=== PATIENT | male | born 1955 | race African-American/Black ===

== ENCOUNTER 2016-05-31 17:10 | Emergency (ER) | payer OTHER ==
[~2016-05-31] VITALS: Ht 175.3 cm; Wt 90.3 kg
[~2016-05-31 17:10] MED LIST: ADVAIR 250/501 DISK IH; AMLODIPINE BESYL5 MG PO; ANTIBIOTIC; ASPIRIN325 MG PO; ATORVASTATIN CA40 MG PO; CIPROFLOXACIN500 M1 PO; HYDROCHLOROTH12.5 M3 PO; LASIX20 MG PO; MELOXICAM7.5 MG PO; METOPROLOL TART25 MG PO; METRONIDAZOLE500 MG PO; MOBIC7.5 MG PO; NICOTINE PATCH1 EAC2 TD; PAIN MEDICINE; PANTOPRAZOLE SO40 MG PO; PERCOCET 5/31 TABLET PO; PRAVACHOL40 MG PO; PREDNISONE20 MG PO; ULTRAM50 MG PO; VENTOLIN HFA18 GM IH; XARELTO20 MG PO; ZITHROMAX Z-PA250 MG PO
[2016-05-31 21:00] LABS: MCH 29.3 PG (29.0-34.0); MCHC 33.8 G/DL (30.0-36.0); MCV 86.9 FL (86-99); MEAN PLAT.VOLUME 10.6 uM^3 (9.0-12.4); PLATELET COUNT 267 K/uL (156-360); RED BLOOD COUNT 5.18 M/uL (4.00-5.50); WHITE BLOOD COUNT 12.9 K/uL (4.1-10.2)
[2016-05-31 21:07] LABS: CHLORIDE 105 mEq/L (99-109); POTASSIUM 4.3 mEq/L (3.7-5.4); SODIUM 135 mEq/L (136-147)
[2016-05-31 21:09] LABS: GLUCOSE 94 mg/dL (70-99)
[2016-05-31 21:10] LABS: ANION GAP 11 MEQ/L (2-14)
[2016-05-31 21:13] LABS: GFR ESTIMATE (CALCULATED) > 59 mL/min/
[2016-05-31 21:14] LABS: UREA NITROGEN (BUN) 12 mg/dL (9-23)
[2016-05-31] MEDS ORDERED: PERCOCET 5/31 TABLET PO (21:46)
[2016-05-31 22:11] VITALS: BP 175/85
== END 2016-05-31 22:13 | disposition home or self-care (01) ==
LOC: EME 17:10
PROVIDERS: Physician Assistant
DX: S80.02XA Contusion of left knee, initial encounter (principal); W01.0XXA Fall on same level from slipping, tripping and stumbling without subsequent striking against object, initial encounter; Y92.410 Unspecified street and highway as the place of occurrence of the external cause; F17.200 Nicotine dependence, unspecified, uncomplicated
CPT/HCPCS: 73564; 80048; 85027; 99281; 99284

== ENCOUNTER 2016-06-02 10:11 | Inpatient (IN) | payer OTHER ==
[~2016-06-02] VITALS: Ht 175.3 cm; Wt 87.5 kg
[2016-06-02 12:24] LABS: HEMATOCRIT 45.5 % (38.0-50.0); MCH 28.9 PG (29.0-34.0); MCHC 32.7 G/DL (30.0-36.0); MCV 88.2 FL (86-99); MEAN PLAT.VOLUME 10.8 uM^3 (9.0-12.4); PLATELET COUNT 251 K/uL (156-360); RBC DIS.WIDTH-CV 15.1 % (11.8-14.6); RBC DIS.WIDTH-SD 48.5 % (39-53); RED BLOOD COUNT 5.16 M/uL (4.00-5.50); WHITE BLOOD COUNT 12.2 K/uL (4.1-10.2)
[2016-06-02 12:34] LABS: CHLORIDE 105 mEq/L (99-109); POTASSIUM 4.3 mEq/L (3.7-5.4); SODIUM 138 mEq/L (136-147)
[2016-06-02 12:36] LABS: GLUCOSE 88 mg/dL (70-99)
[2016-06-02 12:37] LABS: ANION GAP 10 MEQ/L (2-14)
[2016-06-02 12:39] LABS: GFR ESTIMATE (CALCULATED) > 59 mL/min/
[2016-06-02 12:40] LABS: UREA NITROGEN (BUN) 14 mg/dL (9-23)
[2016-06-02 12:43] LABS: TROP-I INTERPRETATION NEGATIVE; TROPONIN-I < 0.01 ng/mL (0.0-0.30)
[2016-06-02 15:50] VITALS: BP 158/77
== END 2016-06-02 15:50 | disposition home or self-care (01) | DRG 313 ==
LOC: EME 10:11 → EDOF 14:07
DX: R07.89 Other chest pain (principal); J45.909 Unspecified asthma, uncomplicated; I10 Essential (primary) hypertension; I50.9 Heart failure, unspecified; F17.200 Nicotine dependence, unspecified, uncomplicated
CPT/HCPCS: 71020; 80048; 84484; 85027; 93005; 99281; 99285

== ENCOUNTER 2016-06-07 10:32 | Observation (INO) | payer OTHER ==
[~2016-06-07] VITALS: Ht 175.3 cm; Wt 90.0 kg
[2016-06-07 11:41] LABS: HEMATOCRIT 44.9 % (38.0-50.0); MCH 29.1 PG (29.0-34.0); MCV 88.4 FL (86-99); MEAN PLAT.VOLUME 10.7 uM^3 (9.0-12.4); PLATELET COUNT 257 K/uL (156-360); RBC DIS.WIDTH-CV 15.4 % (11.8-14.6); RBC DIS.WIDTH-SD 49.3 % (39-53); RED BLOOD COUNT 5.08 M/uL (4.00-5.50); WHITE BLOOD COUNT 10.5 K/uL (4.1-10.2)
[2016-06-07 11:50] LABS: CHLORIDE 108 mEq/L (99-109); POTASSIUM 3.7 mEq/L (3.7-5.4); SODIUM 141 mEq/L (136-147)
[2016-06-07 11:51] LABS: GLUCOSE 100 mg/dL (70-99)
[2016-06-07 11:53] LABS: ANION GAP 10 MEQ/L (2-14)
[2016-06-07 11:55] LABS: GFR ESTIMATE (CALCULATED) > 59 mL/min/
[2016-06-07 11:56] LABS: UREA NITROGEN (BUN) 12 mg/dL (9-23)
[2016-06-07 12:01] LABS: TROP-I INTERPRETATION NEGATIVE; TROPONIN-I < 0.01 ng/mL (0.0-0.30)
[2016-06-07 15:44] LABS: TROP-I INTERPRETATION NEGATIVE; TROPONIN-I < 0.01 ng/mL (0.0-0.30)
[2016-06-07] MEDS ORDERED: LISINOPRIL20 MG PO (16:15)
[2016-06-07 17:12] VITALS: BP 180/92
[2016-06-07 20:10] VITALS: BP 177/90
[2016-06-07 22:10] LABS: TROP-I INTERPRETATION NEGATIVE; TROPONIN-I < 0.01 ng/mL (0.0-0.30)
[2016-06-08 00:22] VITALS: BP 159/73
[2016-06-08 04:20] VITALS: BP 193/88
[2016-06-08 05:08] VITALS: BP 168/84
[2016-06-08 08:11] VITALS: BP 132/80
[2016-06-08 12:19] VITALS: BP 138/72
[2016-06-08 13:45] VITALS: BP 149/85
[2016-06-08] MEDS ORDERED: ZOCOR10 MG PO (15:01)
[2016-06-08 16:11] LABS: ALKALINE PHOSPHATASE 74 IU/L (3-129); TOTAL BILIRUBIN 0.3 MG/DL (0.0-1.0)
== END 2016-06-08 17:08 | disposition home or self-care (01) ==
LOC: EME 10:32 → EDOF 15:59 → 5WEST 15:59
PROVIDERS: Emergency Medicine; Hospitalist; Internal Medicine
DX: R07.89 Other chest pain (principal); M79.605 Pain in left leg; I48.91 Unspecified atrial fibrillation; I73.9 Peripheral vascular disease, unspecified; I10 Essential (primary) hypertension; Z59.0 Homelessness; F17.210 Nicotine dependence, cigarettes, uncomplicated
CPT/HCPCS: 71020; 80048; 80076; 84484; 85027; 93005; 93971; 99281; 99285; G0378; J1650

== ENCOUNTER 2016-06-22 15:09 | Emergency (ER) | payer OTHER ==
[~2016-06-22] VITALS: Ht 177.8 cm; Wt 86.4 kg
[~2016-06-22 15:09] MED LIST changes: +LISINOPRIL20 MG PO; +ZOCOR10 MG PO
[2016-06-22 18:08] LABS: HEMATOCRIT 47.5 % (38.0-50.0); MCH 28.9 PG (29.0-34.0); MCHC 33.1 G/DL (30.0-36.0); MCV 87.5 FL (86-99); MEAN PLAT.VOLUME 10.1 uM^3 (9.0-12.4); PLATELET COUNT 276 K/uL (156-360); RBC DIS.WIDTH-CV 15.2 % (11.8-14.6); RBC DIS.WIDTH-SD 48.9 % (39-53); RED BLOOD COUNT 5.43 M/uL (4.00-5.50); WHITE BLOOD COUNT 12.6 K/uL (4.1-10.2)
[2016-06-22 18:19] LABS: CHLORIDE 105 mEq/L (99-109); POTASSIUM 4.3 mEq/L (3.7-5.4); SODIUM 141 mEq/L (136-147)
[2016-06-22 18:21] LABS: GLUCOSE 103 mg/dL (70-99)
[2016-06-22 18:22] LABS: ANION GAP 10 MEQ/L (2-14)
[2016-06-22 18:25] LABS: GFR ESTIMATE (CALCULATED) > 59 mL/min/
[2016-06-22 18:26] LABS: UREA NITROGEN (BUN) 17 mg/dL (9-23)
[2016-06-22] MEDS ORDERED: NAPROSYN500 MG PO (19:24)
[2016-06-22 19:31] LABS: ERTH.SED.RATE 24 MM/HR (0-20)
[2016-06-22 19:41] LABS: C-REACTIVE PROTEIN 8.4 MG/L (0-10); SAMPLE HEMOLYSIS CHECK 0; SAMPLE ICTERIC CHECK 0; SAMPLE LIPEMIA CHECK 0
[2016-06-22 20:04] VITALS: BP 150/91
== END 2016-06-22 20:06 | disposition home or self-care (01) ==
LOC: EME 15:09
PROVIDERS: Nurse Practitioner Family
DX: M25.562 Pain in left knee (principal); Z96.652 Presence of left artificial knee joint; I10 Essential (primary) hypertension; J45.909 Unspecified asthma, uncomplicated; F17.200 Nicotine dependence, unspecified, uncomplicated; Z88.0 Allergy status to penicillin
CPT/HCPCS: 73564; 80048; 85027; 85651; 86140; 99281; 99283

== ENCOUNTER 2016-07-04 11:12 | Observation (INO) | payer OTHER ==
[~2016-07-04] VITALS: Ht 175.3 cm; Wt 86.3 kg
[~2016-07-04 11:12] MED LIST changes: +NAPROSYN500 MG PO
[2016-07-04 11:38] LABS: HEMATOCRIT 44.5 % (38.0-50.0); MCH 28.8 PG (29.0-34.0); MCV 87.1 FL (86-99); PLATELET COUNT 268 K/uL (156-360); RBC DIS.WIDTH-CV 14.9 % (11.8-14.6); RBC DIS.WIDTH-SD 47.3 % (39-53); RED BLOOD COUNT 5.11 M/uL (4.00-5.50); WHITE BLOOD COUNT 9.9 K/uL (4.1-10.2)
[2016-07-04 11:53] LABS: CHLORIDE 108 mEq/L (99-109); POTASSIUM 4.4 mEq/L (3.7-5.4); SODIUM 139 mEq/L (136-147)
[2016-07-04 11:55] LABS: GLUCOSE 86 mg/dL (70-99)
[2016-07-04 11:57] LABS: ANION GAP 9 MEQ/L (2-14)
[2016-07-04 11:59] LABS: GFR ESTIMATE (CALCULATED) > 59 mL/min/; UREA NITROGEN (BUN) 20 mg/dL (9-23)
[2016-07-04 12:06] LABS: TROP-I INTERPRETATION NEGATIVE; TROPONIN-I < 0.01 ng/mL (0.0-0.30)
[2016-07-04 14:42] LABS: TROP-I INTERPRETATION NEGATIVE; TROPONIN-I < 0.01 ng/mL (0.0-0.30)
[2016-07-04] MEDS ORDERED: LITE COAT ASPI325 M1 PO (16:37)
[2016-07-04 17:17] LABS: SAMPLE HEMOLYSIS CHECK 0; SAMPLE ICTERIC CHECK 0; SAMPLE LIPEMIA CHECK 0
[2016-07-04 17:23] LABS: HDL CHOLESTEROL 42 MG/DL (Desirable>=40); LDL CHOLESTEROL 116 mg/dL (Desirable<100); NON-HDL CHOLESTEROL 152 mg/dL (Desirable<160); TOTAL CHOLESTEROL 194 mg/dL (Desirable<200); TRIGLYCERIDES 179 MG/DL (Normal: <150)
[2016-07-04 20:00] VITALS: BP 144/84
[2016-07-04 22:15] LABS: TROP-I INTERPRETATION NEGATIVE; TROPONIN-I < 0.01 ng/mL (0.0-0.30)
[2016-07-05] VITALS: BP 143/83
[2016-07-05 06:00] LABS: HEMATOCRIT 42.8 % (38.0-50.0); MCH 29.3 PG (29.0-34.0); MCHC 33.2 G/DL (30.0-36.0); MCV 88.4 FL (86-99); MEAN PLAT.VOLUME 10.3 uM^3 (9.0-12.4); PLATELET COUNT 275 K/uL (156-360); RBC DIS.WIDTH-SD 48.2 % (39-53); RED BLOOD COUNT 4.84 M/uL (4.00-5.50); WHITE BLOOD COUNT 12.2 K/uL (4.1-10.2)
[2016-07-05 06:21] LABS: ANION GAP 8 MEQ/L (2-14); CHLORIDE 109 MEQ/L (99-109); GFR ESTIMATE (CALCULATED) > 59 mL/min/; GLUCOSE 94 mg/dL (70-99); POTASSIUM 4.4 MEQ/L (3.7-5.4); SAMPLE HEMOLYSIS CHECK 0; SAMPLE ICTERIC CHECK 0; SAMPLE LIPEMIA CHECK 0; SODIUM 140 MEQ/L (136-147); UREA NITROGEN (BUN) 17 mg/dL (9-23)
[2016-07-05 08:40] VITALS: BP 158/82
[2016-07-05 12:04] VITALS: BP 140/66
[2016-07-05] MEDS ORDERED: PRAVASTATIN SOD40 MG PO (14:29)
[2016-07-05] MEDS ORDERED: LISINOPRIL20 MG PO (14:29)
[2016-07-05] MEDS ORDERED: NITROSTAT0.4 MG SL (14:29)
[2016-07-05] MEDS ORDERED: LO-DOSE ASPIRIN81 M2 PO (15:20)
[2016-07-05 16:00] VITALS: BP 160/77
[2016-07-05 19:00] VITALS: BP 153/83
[2016-07-05 23:56] VITALS: BP 137/72
[2016-07-06 04:01] VITALS: BP 171/93
[2016-07-06 07:30] VITALS: BP 150/74
[2016-07-06 11:45] VITALS: BP 157/74
[2016-07-06 15:40] VITALS: BP 139/86
[2016-07-06 20:00] VITALS: BP 149/70
[2016-07-07 00:19] VITALS: BP 137/75
[2016-07-07 04:00] VITALS: BP 147/67
[2016-07-07 09:06] VITALS: BP 136/69
[2016-07-07] MEDS ORDERED: METOPROLOL TART25 MG PO (11:34)
[2016-07-07 11:56] VITALS: BP 125/60
== END 2016-07-07 13:16 | disposition home or self-care (01) ==
LOC: EME 11:12 → 5WEST 15:51 → EDOF 15:51 → 5WEST 16:56
PROVIDERS: Hospitalist; Nurse Practitioner Family
DX: R07.9 Chest pain, unspecified (principal); I45.10 Unspecified right bundle-branch block; I10 Essential (primary) hypertension; F10.10 Alcohol abuse, uncomplicated; F19.10 Other psychoactive substance abuse, uncomplicated; F17.210 Nicotine dependence, cigarettes, uncomplicated; Z91.128 Patient's intentional underdosing of medication regimen for other reason; T46.4X6A Underdosing of angiotensin-converting-enzyme inhibitors, initial encounter; Z88.0 Allergy status to penicillin; Z82.49 Family history of ischemic heart disease and other diseases of the circulatory system; Z82.3 Family history of stroke
CPT/HCPCS: 71020; 78452; 80048; 80061; 80306 90; 83880; 84484; 85027; 93005; 93017; 99281; 99284; A9500; G0378; J1650; J2785; J3411; J7030

== ENCOUNTER 2016-07-15 18:51 | Emergency (ER) | payer OTHER ==
[~2016-07-15] VITALS: Ht 175.3 cm; Wt 93.0 kg
[~2016-07-15 18:51] MED LIST changes: +LITE COAT ASPI325 M1 PO; +LO-DOSE ASPIRIN81 M2 PO; +NITROSTAT0.4 MG SL; +PRAVASTATIN SOD40 MG PO
[2016-07-15 19:28] LABS: HEMATOCRIT 43.6 % (38.0-50.0); MCH 28.7 PG (29.0-34.0); MCHC 33.3 G/DL (30.0-36.0); MCV 86.3 FL (86-99); MEAN PLAT.VOLUME 9.9 uM^3 (9.0-12.4); PLATELET COUNT 285 K/uL (156-360); RBC DIS.WIDTH-CV 14.8 % (11.8-14.6); RBC DIS.WIDTH-SD 46.1 % (39-53); RED BLOOD COUNT 5.05 M/uL (4.00-5.50); WHITE BLOOD COUNT 14.3 K/uL (4.1-10.2)
[2016-07-15 19:38] LABS: CHLORIDE 104 mEq/L (99-109); POTASSIUM 3.8 mEq/L (3.7-5.4); SODIUM 138 mEq/L (136-147)
[2016-07-15 19:39] LABS: GLUCOSE 103 mg/dL (70-99)
[2016-07-15 19:41] LABS: ANION GAP 9 MEQ/L (2-14)
[2016-07-15 19:43] LABS: GFR ESTIMATE (CALCULATED) > 59 mL/min/
[2016-07-15 19:44] LABS: UREA NITROGEN (BUN) 15 mg/dL (9-23)
[2016-07-15 19:49] LABS: TROP-I INTERPRETATION NEGATIVE; TROPONIN-I < 0.01 ng/mL (0.0-0.30)
[2016-07-15 19:57] LABS: SERUM ETHYL ALCOHOL < 10 mg/dL
[2016-07-15 22:10] VITALS: BP 168/99
== END 2016-07-15 22:21 | disposition home or self-care (01) ==
LOC: EME → EDBD 18:51 → EME 18:51
DX: R07.89 Other chest pain (principal); J45.909 Unspecified asthma, uncomplicated; I10 Essential (primary) hypertension; Z96.652 Presence of left artificial knee joint; F17.200 Nicotine dependence, unspecified, uncomplicated; Z71.6 Tobacco abuse counseling
CPT/HCPCS: 71020; 80048; 84484; 85027; 93005; 99281; 99284; G0480; J7030

== ENCOUNTER 2016-07-17 03:38 | Emergency (ER) | payer OTHER ==
[~2016-07-17] VITALS: Ht 175.3 cm; Wt 92.0 kg
[2016-07-17 04:53] LABS: HEMATOCRIT 45.1 % (38.0-50.0); MCHC 33.5 G/DL (30.0-36.0); MCV 86.7 FL (86-99); MEAN PLAT.VOLUME 10.1 uM^3 (9.0-12.4); PLATELET COUNT 287 K/uL (156-360); RBC DIS.WIDTH-CV 14.9 % (11.8-14.6); RBC DIS.WIDTH-SD 47.2 % (39-53); WHITE BLOOD COUNT 12.9 K/uL (4.1-10.2)
[2016-07-17 04:55] LABS: BASOPHIL COUNT 0.1 K/uL (0-0.1); EOSINOPHIL (%) 2.3 % (0-5); EOSINOPHIL COUNT 0.3 K/uL (0-0.3); IMMATURE GRANULOCYTE (%) 0.2 % (0.0-0.7); IMMATURE GRANULOCYTE COUNT 0.2 K/uL; LYMPHOCYTE COUNT 1.8 K/uL (1.0-2.8); MONOCYTE (%) 10.3 % (3-12); MONOCYTE COUNT 1.3 K/uL (0-0.8); NEUTROPHIL (%) 72.6 % (45-76); NEUTROPHIL COUNT 9.3 K/uL (1.8-6.4)
[2016-07-17 05:03] LABS: CHLORIDE 106 mEq/L (99-109); POTASSIUM 4.1 mEq/L (3.7-5.4); SODIUM 139 mEq/L (136-147)
[2016-07-17 05:05] LABS: GLUCOSE 97 mg/dL (70-99)
[2016-07-17 05:07] LABS: ANION GAP 8 MEQ/L (2-14)
[2016-07-17 05:09] LABS: GFR ESTIMATE (CALCULATED) > 59 mL/min/
[2016-07-17 05:10] LABS: UREA NITROGEN (BUN) 21 mg/dL (9-23)
[2016-07-17 05:28] LABS: SERUM ETHYL ALCOHOL < 10 mg/dL
[2016-07-17] MEDS ORDERED: LIBRIUM5 MG PO (06:11)
[2016-07-17 07:03] VITALS: BP 122/69
[2016-07-18] MEDS ORDERED: NAPROXEN500 MG PO (15:17)
== END 2016-07-17 07:04 | disposition home or self-care (01) ==
LOC: EME 03:38
PROVIDERS: Emergency Medicine
DX: R05 Cough (principal); I10 Essential (primary) hypertension; Z91.14 Patient's other noncompliance with medication regimen
CPT/HCPCS: 71010; 80048; 85025; 99281; 99285; G0480

== ENCOUNTER 2016-07-17 08:55 | Emergency (ER) | payer OTHER ==
[~2016-07-17] VITALS: Ht 175.3 cm; Wt 103.5 kg
[~2016-07-17 08:55] MED LIST changes: +LIBRIUM5 MG PO
[2016-07-17 12:36] VITALS: BP 125/75
[2016-07-18] MEDS ORDERED: NAPROXEN500 MG PO (15:17)
== END 2016-07-17 12:37 | disposition home or self-care (01) ==
LOC: EME 08:55
DX: F41.1 Generalized anxiety disorder (principal); Z59.0 Homelessness; Z88.0 Allergy status to penicillin
CPT/HCPCS: 99281; 99283

== ENCOUNTER 2016-07-18 12:22 | Emergency (ER) | payer OTHER ==
[~2016-07-18] VITALS: Ht 175.3 cm; Wt 90.5 kg
[2016-07-18] MEDS ORDERED: NAPROXEN500 MG PO (15:17)
[2016-07-18 15:40] VITALS: BP 116/65
== END 2016-07-18 15:41 | disposition home or self-care (01) ==
LOC: EME → EDBD 12:22 → EME 12:22
DX: S80.02XA Contusion of left knee, initial encounter (principal); W18.30XA Fall on same level, unspecified, initial encounter; Y93.01 Activity, walking, marching and hiking; Y92.410 Unspecified street and highway as the place of occurrence of the external cause; Z59.0 Homelessness; I10 Essential (primary) hypertension; Z96.652 Presence of left artificial knee joint; F17.200 Nicotine dependence, unspecified, uncomplicated
CPT/HCPCS: 73564; 99281; 99285

== ENCOUNTER 2016-07-23 14:33 | Emergency (ER) | payer OTHER ==
[~2016-07-23] VITALS: Ht 175.3 cm; Wt 86.5 kg
[~2016-07-23 14:33] MED LIST changes: +NAPROXEN500 MG PO
[2016-07-23 17:04] LABS: MCH 28.5 PG (29.0-34.0); MCHC 32.4 G/DL (30.0-36.0); MCV 88.1 FL (86-99); MEAN PLAT.VOLUME 10.4 uM^3 (9.0-12.4); PLATELET COUNT 255 K/uL (156-360); RBC DIS.WIDTH-CV 14.8 % (11.8-14.6); RBC DIS.WIDTH-SD 47.2 % (39-53); RED BLOOD COUNT 4.77 M/uL (4.00-5.50); WHITE BLOOD COUNT 11.3 K/uL (4.1-10.2)
[2016-07-23 17:06] LABS: BASOPHIL COUNT 0.1 K/uL (0-0.1); EOSINOPHIL (%) 6.5 % (0-5); EOSINOPHIL COUNT 0.7 K/uL (0-0.3); IMMATURE GRANULOCYTE (%) 0.4 % (0.0-0.7); IMMATURE GRANULOCYTE COUNT 0.5 K/uL; MONOCYTE (%) 8.6 % (3-12); NEUTROPHIL (%) 57.7 % (45-76); NEUTROPHIL COUNT 6.5 K/uL (1.8-6.4)
[2016-07-23 17:15] LABS: INTER. NORMALIZED RATIO 1.1; PROTHROMBIN TIME 10.7 (9.2-11.2)
[2016-07-23 17:20] LABS: CHLORIDE 106 mEq/L (99-109); POTASSIUM 4.1 mEq/L (3.7-5.4); SODIUM 138 mEq/L (136-147)
[2016-07-23 17:22] LABS: GLUCOSE 108 mg/dL (70-99)
[2016-07-23 17:23] LABS: ANION GAP 7 MEQ/L (2-14)
[2016-07-23 17:24] LABS: TOTAL BILIRUBIN 0.2 mg/dL (0.0-1.0)
[2016-07-23 17:25] LABS: SERUM ETHYL ALCOHOL < 10 mg/dL
[2016-07-23 17:26] LABS: ALKALINE PHOSPHATASE 82 IU/L (3-129); GFR ESTIMATE (CALCULATED) > 59 mL/min/
[2016-07-23 17:27] LABS: UREA NITROGEN (BUN) 11 mg/dL (9-23)
[2016-07-23 19:21] LABS: ADD MIUA? YES; BILIRUBIN NEGATIVE; BLOOD NEGATIVE; COLOR STRAW ((YELLOW)); GLUCOSE (STRIP) NEGATIVE; KETONES NEGATIVE; LEUKOCYTES TRACE; NITRITE NEGATIVE; PROTEIN (STRIP) 30; SPECIFIC GRAVITY 1.009 (1.000-1.030); UROBILINOGEN 0.2 MG/DL (0.2-1.0)
[2016-07-23 19:31] LABS: BACTERIA NONE SEEN /HPF; EPITHELIAL CELLS NONE SEEN /HPF; MUCUS TRACE /LPF; RED BLOOD CELLS 0-5 /HPF (0-5); WHITE BLOOD CELLS 0-5 /HPF (0-5)
[2016-07-23] MEDS ORDERED: COLACE100 MG PO (20:41)
[2016-07-23] MEDS ORDERED: NIZORAL 2% CREA15 GM TP (20:41)
[2016-07-23 21:13] VITALS: BP 164/89
== END 2016-07-23 21:28 | disposition home or self-care (01) ==
LOC: EME → EDBD 14:33 → EME 21:28
PROVIDERS: Emergency Medicine
DX: K59.00 Constipation, unspecified (principal); B35.4 Tinea corporis; F17.200 Nicotine dependence, unspecified, uncomplicated
CPT/HCPCS: 74177; 80053; 81003; 85025; 85610; 99281; 99285; G0480; J7040

== ENCOUNTER 2016-07-25 15:35 | Emergency (ER) | payer OTHER ==
[~2016-07-25] VITALS: Ht 175.3 cm; Wt 86.5 kg
[~2016-07-25 15:35] MED LIST changes: +COLACE100 MG PO; +NIZORAL 2% CREA15 GM TP
[2016-07-25 17:30] LABS: HEMATOCRIT 41.2 % (38.0-50.0); MCH 29.1 PG (29.0-34.0); MCV 88.2 FL (86-99); PLATELET COUNT 283 K/uL (156-360); RBC DIS.WIDTH-CV 14.9 % (11.8-14.6); RBC DIS.WIDTH-SD 47.7 % (39-53); RED BLOOD COUNT 4.67 M/uL (4.00-5.50); WHITE BLOOD COUNT 11.6 K/uL (4.1-10.2)
[2016-07-25 17:31] LABS: EOSINOPHIL (%) 5.1 % (0-5); EOSINOPHIL COUNT 0.6 K/uL (0-0.3); IMMATURE GRANULOCYTE (%) 0.4 % (0.0-0.7); IMMATURE GRANULOCYTE COUNT 0.5 K/uL; LYMPHOCYTE COUNT 3.3 K/uL (1.0-2.8); MONOCYTE (%) 11.9 % (3-12); MONOCYTE COUNT 1.4 K/uL (0-0.8); NEUTROPHIL (%) 53.8 % (45-76); NEUTROPHIL COUNT 6.2 K/uL (1.8-6.4)
[2016-07-25 17:45] LABS: CHLORIDE 106 mEq/L (99-109); POTASSIUM 4.2 mEq/L (3.7-5.4); SODIUM 139 mEq/L (136-147)
[2016-07-25 17:47] LABS: GLUCOSE 88 mg/dL (70-99)
[2016-07-25 17:48] LABS: ANION GAP 7 MEQ/L (2-14)
[2016-07-25 17:50] LABS: ALKALINE PHOSPHATASE 81 IU/L (3-129)
[2016-07-25 17:51] LABS: GFR ESTIMATE (CALCULATED) > 59 mL/min/; TOTAL BILIRUBIN 0.3 mg/dL (0.0-1.0)
[2016-07-25 17:52] LABS: UREA NITROGEN (BUN) 12 mg/dL (9-23)
[2016-07-25 18:19] VITALS: BP 163/83
== END 2016-07-25 18:24 | disposition home or self-care (01) ==
LOC: EME → EDBD 15:35 → EME 18:24
PROVIDERS: Emergency Medicine
DX: K59.00 Constipation, unspecified (principal); R15.9 Full incontinence of feces; I10 Essential (primary) hypertension; Z96.652 Presence of left artificial knee joint; Z88.0 Allergy status to penicillin
CPT/HCPCS: 74020; 80053; 81003; 85025; 99281; 99283

== ENCOUNTER 2016-07-27 15:19 | Emergency (ER) | payer OTHER ==
[~2016-07-27] VITALS: Ht 175.3 cm; Wt 90.1 kg
[2016-07-27 16:28] LABS: TROP-I INTERPRETATION NEGATIVE; TROPONIN-I < 0.01 ng/mL (0.0-0.30)
[2016-07-27 21:06] VITALS: BP 166/89
== END 2016-07-27 21:09 | disposition home or self-care (01) ==
LOC: EME → EDBD 15:19 → EME 21:09
PROVIDERS: Emergency Medicine
DX: R07.9 Chest pain, unspecified (principal); F10.20 Alcohol dependence, uncomplicated; I10 Essential (primary) hypertension; F17.200 Nicotine dependence, unspecified, uncomplicated
CPT/HCPCS: 84484; 93005

== ENCOUNTER 2016-08-04 17:13 | Emergency (ER) | payer OTHER ==
[~2016-08-04] VITALS: Ht 175.3 cm; Wt 89.9 kg
[2016-08-04 21:12] VITALS: BP 192/89
== END 2016-08-04 21:13 | disposition home or self-care (01) ==
LOC: EME 17:13
DX: R60.0 Localized edema (principal); Z88.0 Allergy status to penicillin
CPT/HCPCS: 93971; 99281; 99284

== ENCOUNTER 2016-08-09 15:47 | Emergency (ER) | payer OTHER ==
[~2016-08-09] VITALS: Ht 175.3 cm; Wt 85.5 kg
[2016-08-09 16:56] LABS: HEMATOCRIT 48.3 % (38.0-50.0); MCH 28.4 PG (29.0-34.0); MCHC 32.1 G/DL (30.0-36.0); MCV 88.6 FL (86-99); RBC DIS.WIDTH-CV 14.3 % (11.8-14.6); RBC DIS.WIDTH-SD 46.1 % (39-53); RED BLOOD COUNT 5.45 M/uL (4.00-5.50); WHITE BLOOD COUNT 11.9 K/uL (4.1-10.2)
[2016-08-09 17:08] LABS: CHLORIDE 104 mEq/L (99-109); POTASSIUM 3.9 mEq/L (3.7-5.4); SODIUM 142 mEq/L (136-147)
[2016-08-09 17:09] LABS: GLUCOSE 115 mg/dL (70-99)
[2016-08-09 17:11] LABS: ANION GAP 12 MEQ/L (2-14)
[2016-08-09 17:13] LABS: GFR ESTIMATE (CALCULATED) > 59 mL/min/
[2016-08-09 17:14] LABS: UREA NITROGEN (BUN) 15 mg/dL (9-23)
[2016-08-09 17:21] LABS: TROP-I INTERPRETATION NEGATIVE; TROPONIN-I < 0.01 ng/mL (0.0-0.30)
[2016-08-09 17:32] LABS: MEAN PLAT.VOLUME 9.9 uM^3 (9.0-12.4); PLATELET COUNT 298 K/uL (156-360)
[2016-08-09] MEDS ORDERED: FLEXERIL10 MG PO (18:41)
[2016-08-09] MEDS ORDERED: NAPROSYN500 MG PO (18:41)
[2016-08-09 19:21] VITALS: BP 150/84
[2016-08-10] MEDS ORDERED: MOTRIN800 MG PO (16:18)
== END 2016-08-09 19:22 | disposition home or self-care (01) ==
LOC: EME 15:47
DX: S29.011A Strain of muscle and tendon of front wall of thorax, initial encounter (principal); M79.662 Pain in left lower leg; W19.XXXA Unspecified fall, initial encounter; F17.200 Nicotine dependence, unspecified, uncomplicated
CPT/HCPCS: 71020; 80048; 84484; 85027; 93005

== ENCOUNTER 2016-08-10 12:08 | Emergency (ER) | payer OTHER ==
[~2016-08-10] VITALS: Ht 175.3 cm; Wt 81.8 kg
[~2016-08-10 12:08] MED LIST changes: +FLEXERIL10 MG PO
[2016-08-10] MEDS ORDERED: MOTRIN800 MG PO (16:18)
[2016-08-10 16:36] VITALS: BP 00/00
== END 2016-08-10 16:54 | disposition home or self-care (01) ==
LOC: EXP 12:08 → EME 12:08 → EXP 16:54
PROC: 3E0234Z Introduction of Serum, Toxoid and Vaccine into Muscle, Percutaneous Approach (ICD-10-PCS; principal; 2016-08-10)
DX: S80.02XA Contusion of left knee, initial encounter (principal); W18.30XA Fall on same level, unspecified, initial encounter; F17.200 Nicotine dependence, unspecified, uncomplicated
CPT/HCPCS: 73564; 99281; 99283

== ENCOUNTER 2016-08-15 19:49 | Emergency (ER) | payer OTHER ==
[~2016-08-15] VITALS: Ht 175.3 cm; Wt 84.8 kg
[~2016-08-15 19:49] MED LIST changes: +MOTRIN800 MG PO
[2016-08-15] MEDS ORDERED: PREDNISONE20 MG PO (23:54)
[2016-08-16 00:32] VITALS: BP 179/91
== END 2016-08-16 00:34 | disposition home or self-care (01) ==
LOC: EXP 19:49 → EME 19:49 → EXP 08-16 00:34
DX: J44.1 Chronic obstructive pulmonary disease with (acute) exacerbation (principal); M25.562 Pain in left knee; G89.29 Other chronic pain; R60.0 Localized edema; J45.909 Unspecified asthma, uncomplicated; I10 Essential (primary) hypertension; Z96.652 Presence of left artificial knee joint; F17.200 Nicotine dependence, unspecified, uncomplicated
CPT/HCPCS: 71020; 73564; 93971; 94640; 94664; 99281; 99284; J7512

== ENCOUNTER 2016-08-17 07:12 | Emergency (ER) | payer OTHER ==
[~2016-08-17] VITALS: Ht 175.3 cm; Wt 88.4 kg
[2016-08-17 07:45] LABS: EOSINOPHIL (%) 3.1 % (0-5); EOSINOPHIL COUNT 0.3 K/uL (0-0.3); HEMATOCRIT 46.5 % (38.0-50.0); IMMATURE GRANULOCYTE (%) 0.4 % (0.0-0.7); INSTRUMENT ABS NEUTROPHIL CT 6.4 K/uL; LYMPHOCYTE COUNT 3.1 K/uL (1.0-2.8); MCH 28.2 PG (29.0-34.0); MCHC 31.6 G/DL (30.0-36.0); MCV 89.3 FL (86-99); MEAN PLAT.VOLUME 10.2 uM^3 (9.0-12.4); MONOCYTE (%) 10.5 % (3-12); MONOCYTE COUNT 1.2 K/uL (0-0.8); NEUTROPHIL (%) 57.6 % (45-76); NEUTROPHIL COUNT 6.4 K/uL (1.8-6.4); PLATELET COUNT 281 K/uL (156-360); RBC DIS.WIDTH-CV 14.3 % (11.8-14.6); RBC DIS.WIDTH-SD 46.9 % (39-53); RED BLOOD COUNT 5.21 M/uL (4.00-5.50); WHITE BLOOD COUNT 11.1 K/uL (4.1-10.2)
[2016-08-17 07:53] LABS: INTER. NORMALIZED RATIO 1.1
[2016-08-17 07:55] LABS: CHLORIDE 106 mEq/L (99-109); POTASSIUM 3.7 mEq/L (3.7-5.4); SODIUM 139 mEq/L (136-147)
[2016-08-17 07:57] LABS: GLUCOSE 98 mg/dL (70-99)
[2016-08-17 07:59] LABS: ANION GAP 10 MEQ/L (2-14)
[2016-08-17 08:01] LABS: GFR ESTIMATE (CALCULATED) > 59 mL/min/
[2016-08-17 08:02] LABS: UREA NITROGEN (BUN) 18 mg/dL (9-23)
[2016-08-17 09:16] VITALS: BP 117/105
== END 2016-08-17 09:34 | disposition home or self-care (01) ==
LOC: EME 07:12
PROVIDERS: Emergency Medicine
DX: M79.605 Pain in left leg (principal); M79.604 Pain in right leg; M19.90 Unspecified osteoarthritis, unspecified site; I10 Essential (primary) hypertension; Z59.0 Homelessness; F17.200 Nicotine dependence, unspecified, uncomplicated; Z88.0 Allergy status to penicillin; J45.909 Unspecified asthma, uncomplicated
CPT/HCPCS: 80048; 85025; 85610; 99281; 99283

== ENCOUNTER 2016-09-01 18:00 | Emergency (ER) | payer OTHER ==
[~2016-09-01] VITALS: Ht 175.3 cm; Wt 80.0 kg
[2016-09-01 18:54] LABS: MCH 28.5 PG (29.0-34.0); MCHC 32.7 G/DL (30.0-36.0); MCV 87.2 FL (86-99); RBC DIS.WIDTH-CV 15.1 % (11.8-14.6); RBC DIS.WIDTH-SD 47.9 % (39-53); RED BLOOD COUNT 5.16 M/uL (4.00-5.50); WHITE BLOOD COUNT 9.5 K/uL (4.1-10.2)
[2016-09-01 19:11] LABS: CHLORIDE 108 mEq/L (99-109); POTASSIUM 3.9 mEq/L (3.7-5.4); SODIUM 139 mEq/L (136-147)
[2016-09-01 19:13] LABS: GLUCOSE 123 mg/dL (70-99)
[2016-09-01 19:14] LABS: ANION GAP 10 MEQ/L (2-14)
[2016-09-01 19:16] LABS: GFR ESTIMATE (CALCULATED) > 59 mL/min/
[2016-09-01 19:17] LABS: UREA NITROGEN (BUN) 20 mg/dL (9-23)
[2016-09-01 19:25] LABS: TROP-I INTERPRETATION NEGATIVE; TROPONIN-I < 0.01 ng/mL (0.0-0.30)
[2016-09-01 19:40] LABS: PLAT.SUFFICIENCY ADEQUATE; PLATELET COUNT 295 K/uL (156-360)
[2016-09-01 20:30] VITALS: BP 158/71
== END 2016-09-01 20:31 | disposition home or self-care (01) ==
LOC: EME 18:00
PROVIDERS: Nurse Practitioner Family
DX: M79.662 Pain in left lower leg (principal); R60.0 Localized edema; G89.29 Other chronic pain; J45.909 Unspecified asthma, uncomplicated; I10 Essential (primary) hypertension; Z96.652 Presence of left artificial knee joint; F17.200 Nicotine dependence, unspecified, uncomplicated; Z59.0 Homelessness
CPT/HCPCS: 80048; 83880; 84484; 85027; 93971; 99281; 99283

== ENCOUNTER 2016-09-14 10:14 | Emergency (ER) | payer OTHER ==
[~2016-09-14] VITALS: Ht 175.3 cm; Wt 81.8 kg
[2016-09-14 10:19] VITALS: BP 129/93
[2016-09-14] MEDS ORDERED: NAPROSYN500 MG PO (10:48)
== END 2016-09-14 11:01 | disposition home or self-care (01) ==
LOC: EME 10:14
DX: R60.0 Localized edema (principal); M17.12 Unilateral primary osteoarthritis, left knee; Z96.652 Presence of left artificial knee joint; F17.200 Nicotine dependence, unspecified, uncomplicated; Z88.0 Allergy status to penicillin
CPT/HCPCS: 99281; 99284

== ENCOUNTER 2016-10-05 15:25 | Emergency (ER) | payer OTHER ==
[~2016-10-05] VITALS: Ht 175.3 cm; Wt 86.3 kg
[2016-10-05 16:06] LABS: MCH 28.5 PG (29.0-34.0); MCHC 32.2 G/DL (30.0-36.0); MCV 88.6 FL (86-99); PLATELET COUNT 271 K/uL (156-360); RBC DIS.WIDTH-CV 14.8 % (11.8-14.6); RBC DIS.WIDTH-SD 48.5 % (39-53); RED BLOOD COUNT 5.08 M/uL (4.00-5.50); WHITE BLOOD COUNT 9.5 K/uL (4.1-10.2)
[2016-10-05 16:31] LABS: TROP-I INTERPRETATION NEGATIVE; TROPONIN-I < 0.01 ng/mL (0.0-0.30)
[2016-10-05 16:37] LABS: CHLORIDE 108 mEq/L (99-109); POTASSIUM 3.8 mEq/L (3.7-5.4); SODIUM 139 mEq/L (136-147)
[2016-10-05 16:38] LABS: GLUCOSE 143 mg/dL (70-99)
[2016-10-05 16:40] LABS: ANION GAP 9 MEQ/L (2-14)
[2016-10-05 16:42] LABS: GFR ESTIMATE (CALCULATED) > 59 mL/min/
[2016-10-05 16:43] LABS: UREA NITROGEN (BUN) 17 mg/dL (9-23)
[2016-10-05 16:49] LABS: D-DIMER ELISA 0.19 mg/L FEU (< 0.57)
[2016-10-05 19:02] LABS: TROP-I INTERPRETATION NEGATIVE; TROPONIN-I < 0.01 ng/mL (0.0-0.30)
[2016-10-05 19:50] VITALS: BP 177/95
== END 2016-10-05 19:52 | disposition home or self-care (01) ==
LOC: EME 15:25
PROVIDERS: Emergency Medicine
DX: R07.9 Chest pain, unspecified (principal); J45.909 Unspecified asthma, uncomplicated; I10 Essential (primary) hypertension; F17.200 Nicotine dependence, unspecified, uncomplicated
CPT/HCPCS: 71020; 80048; 84484; 85027; 85379; 93005; 99281; 99284

== ENCOUNTER 2016-10-11 12:37 | Emergency (ER) | payer OTHER ==
[~2016-10-11] VITALS: Ht 175.3 cm; Wt 86.0 kg
[2016-10-11 14:20] LABS: CHLORIDE 107 mEq/L (99-109); SODIUM 141 mEq/L (136-147)
[2016-10-11 14:21] LABS: GLUCOSE 88 mg/dL (70-99)
[2016-10-11 14:23] LABS: ANION GAP 10 MEQ/L (2-14)
[2016-10-11 14:25] LABS: GFR ESTIMATE (CALCULATED) > 59 mL/min/
[2016-10-11 14:26] LABS: UREA NITROGEN (BUN) 18 mg/dL (9-23)
[2016-10-11 14:32] LABS: TROP-I INTERPRETATION NEGATIVE; TROPONIN-I < 0.01 ng/mL (0.0-0.30)
[2016-10-11 16:34] LABS: TROP-I INTERPRETATION NEGATIVE; TROPONIN-I < 0.01 ng/mL (0.0-0.30)
[2016-10-11 17:17] VITALS: BP 173/84
== END 2016-10-11 17:32 | disposition home or self-care (01) ==
LOC: EME 12:37
PROVIDERS: Emergency Medicine
DX: R07.9 Chest pain, unspecified (principal); I11.0 Hypertensive heart disease with heart failure; I50.9 Heart failure, unspecified; J45.909 Unspecified asthma, uncomplicated; F17.200 Nicotine dependence, unspecified, uncomplicated
CPT/HCPCS: 80048; 84484; 93005; 94640; 99281; 99284

== ENCOUNTER 2016-11-02 10:33 | Emergency (ER) | payer OTHER ==
[~2016-11-02] VITALS: Ht 175.3 cm; Wt 84.0 kg
[2016-11-02 11:52] LABS: HEMATOCRIT 46.7 % (38.0-50.0); MCH 28.3 PG (29.0-34.0); MCHC 32.5 G/DL (30.0-36.0); RBC DIS.WIDTH-CV 14.6 % (11.8-14.6); RBC DIS.WIDTH-SD 46.7 % (39-53); RED BLOOD COUNT 5.37 M/uL (4.00-5.50); WHITE BLOOD COUNT 10.6 K/uL (4.1-10.2)
[2016-11-02 12:06] LABS: CHLORIDE 107 mEq/L (99-109); POTASSIUM 3.8 mEq/L (3.7-5.4); SODIUM 140 mEq/L (136-147)
[2016-11-02 12:08] LABS: GLUCOSE 144 mg/dL (70-99)
[2016-11-02 12:09] LABS: ANION GAP 11 MEQ/L (2-14)
[2016-11-02 12:11] LABS: GFR ESTIMATE (CALCULATED) > 59 mL/min/
[2016-11-02 12:12] LABS: UREA NITROGEN (BUN) 12 mg/dL (9-23)
[2016-11-02 13:10] LABS: MEAN PLAT.VOLUME 10.8 uM^3 (9.0-12.4); PLATELET COUNT 256 K/uL (156-360)
[2016-11-02] MEDS ORDERED: PREDNISONE20 MG PO (13:15)
[2016-11-02] MEDS ORDERED: LEVAQUIN750 MG PO (13:15)
[2016-11-02 14:19] VITALS: BP 164/81
== END 2016-11-02 14:22 | disposition home or self-care (01) ==
LOC: EME 10:33
DX: J44.1 Chronic obstructive pulmonary disease with (acute) exacerbation (principal); Z88.0 Allergy status to penicillin; F17.200 Nicotine dependence, unspecified, uncomplicated
CPT/HCPCS: 71020; 80048; 85027; 94640; 99281; 99285; J1100

== ENCOUNTER 2016-11-28 18:53 | Emergency (ER) | payer OTHER ==
[~2016-11-28] VITALS: Ht 175.3 cm; Wt 88.8 kg
[~2016-11-28 18:53] MED LIST changes: +LEVAQUIN750 MG PO
[2016-11-28 20:00] LABS: HEMATOCRIT 42.4 % (38.0-50.0); MCH 27.8 PG (29.0-34.0); MCHC 32.3 G/DL (30.0-36.0); MCV 86.2 FL (86-99); MEAN PLAT.VOLUME 9.8 uM^3 (9.0-12.4); PLATELET COUNT 212 K/uL (156-360); RBC DIS.WIDTH-CV 14.9 % (11.8-14.6); RBC DIS.WIDTH-SD 47.3 % (39-53); RED BLOOD COUNT 4.92 M/uL (4.00-5.50)
[2016-11-28 20:08] LABS: CHLORIDE 103 mEq/L (99-109); POTASSIUM 3.4 mEq/L (3.7-5.4); SODIUM 138 mEq/L (136-147)
[2016-11-28 20:09] LABS: GLUCOSE 50 mg/dL (70-99)
[2016-11-28 20:11] LABS: ANION GAP 9 MEQ/L (2-14)
[2016-11-28 20:13] LABS: GFR ESTIMATE (CALCULATED) > 59 mL/min/
[2016-11-28 20:14] LABS: UREA NITROGEN (BUN) 14 mg/dL (9-23)
[2016-11-28 20:41] LABS: D-DIMER ELISA 0.34 mg/L FEU (< 0.57)
[2016-11-28 21:28] LABS: POINT-OF-CARE METER ID UU13113747
[2016-11-28 22:31] VITALS: BP 141/71
== END 2016-11-28 22:36 | disposition home or self-care (01) ==
LOC: EME 18:53
PROVIDERS: Emergency Medicine
DX: R60.0 Localized edema (principal); Z96.652 Presence of left artificial knee joint; J45.909 Unspecified asthma, uncomplicated; I10 Essential (primary) hypertension; F17.200 Nicotine dependence, unspecified, uncomplicated
CPT/HCPCS: 80048; 82948; 85027; 85379; 93005; 99281; 99284

== ENCOUNTER 2016-12-13 14:22 | Inpatient (IN) | payer OTHER ==
[2016-12-13 14:43] LABS: BASOPHIL COUNT 0.1 K/uL (0-0.1); EOSINOPHIL (%) 0.8 % (0-5); EOSINOPHIL COUNT 0.2 K/uL (0-0.3); HEMATOCRIT 42.2 % (38.0-50.0); IMMATURE GRANULOCYTE (%) 3.7 % (0.0-0.7); IMMATURE GRANULOCYTE COUNT 0.8 K/uL; INSTRUMENT ABS NEUTROPHIL CT 16.3 K/uL; LYMPHOCYTE COUNT 3.3 K/uL (1.0-2.8); MCH 27.6 PG (29.0-34.0); MCHC 32.5 G/DL (30.0-36.0); MCV 84.9 FL (86-99); MEAN PLAT.VOLUME 9.9 uM^3 (9.0-12.4); MONOCYTE (%) 6.5 % (3-12); MONOCYTE COUNT 1.5 K/uL (0-0.8); NEUTROPHIL (%) 73.6 % (45-76); NEUTROPHIL COUNT 16.3 K/uL (1.8-6.4); RBC DIS.WIDTH-SD 46.1 % (39-53); RED BLOOD COUNT 4.97 M/uL (4.00-5.50); WHITE BLOOD COUNT 22.2 K/uL (4.1-10.2)
[2016-12-13 14:44] LABS: PLATELET COUNT 300 K/uL (156-360)
[2016-12-13 14:52] LABS: AMYLASE 104 IU/L (1-118); CHLORIDE 106 mEq/L (99-109); POTASSIUM 3.6 mEq/L (3.7-5.4); SODIUM 138 mEq/L (136-147)
[2016-12-13 14:53] LABS: GLUCOSE 113 mg/dL (70-99)
[2016-12-13 14:55] LABS: ANION GAP 10 MEQ/L (2-14)
[2016-12-13 14:57] LABS: GFR ESTIMATE (CALCULATED) > 59 mL/min/; SERUM ETHYL ALCOHOL < 10 mg/dL
[2016-12-13 14:58] LABS: UREA NITROGEN (BUN) 11 mg/dL (9-23)
[2016-12-13 15:00] LABS: LIPASE 37 U/L (1.0-51.0)
[2016-12-13 17:53] LABS: CREATINE KINASE 203 IU/L (1-294); TOTAL CK 203 IU/L (1-294)
[2016-12-13 17:59] LABS: TROP-I INTERPRETATION NEGATIVE; TROPONIN-I 0.02 ng/mL (0.0-0.30)
[2016-12-13 18:01] LABS: CK-MB 2.9 ng/mL (0.0-4.9)
[2016-12-13 23:15] VITALS: BP 189/88
[2016-12-14 00:47] LABS: ADD MIUA? YES; BILIRUBIN NEGATIVE; BLOOD SMALL; COLOR YELLOW ((YELLOW)); GLUCOSE (STRIP) NEGATIVE; KETONES NEGATIVE; LEUKOCYTES TRACE; NITRITE NEGATIVE; PROTEIN (STRIP) 100; SPECIFIC GRAVITY 1.039 (1.000-1.030); UROBILINOGEN 0.2 MG/DL (0.2-1.0)
[2016-12-14 00:53] LABS: BACTERIA NONE SEEN /HPF; EPITHELIAL CELLS RARE /HPF; HYALINE CASTS 0-5 /LPF; MUCUS NONE SEEN /LPF; RED BLOOD CELLS 0-5 /HPF (0-5); UCUL ADDED? NO
[2016-12-14 01:05] VITALS: BP 147/76
[2016-12-14 01:40] LABS: ADD MEDTOX COMMENT Y; AMPHETAMINE NEGATIVE (500 ng/mL); BARBITURATES NEGATIVE (200 ng/mL); BENZODIAZEPINES NEGATIVE (150 ng/mL); COCAINE NEGATIVE (150 ng/mL); INTERNAL CONTROLS VALID? YES; METHADONE NEGATIVE (200 ng/mL); METHAMPHETAMINE NEGATIVE (500 ng/mL); OPIATES (MORPHINE) PRESUMPTIVE POSITIVE (100 ng/mL); OXYCODONE NEGATIVE (100 ng/mL); PHENCYCLIDINE NEGATIVE (25 ng/mL); PROPOXYPHENE NEGATIVE (300 ng/mL); THC CANNABINOIDS NEGATIVE (50 ng/mL); TRICYCLIC ANTIDEPRESSANTS NEGATIVE (300 ng/mL)
[2016-12-14 03:00] VITALS: BP 170/75
[2016-12-14 05:40] LABS: HEMATOCRIT 38.2 % (38.0-50.0); MCH 28.4 PG (29.0-34.0); MCHC 33.2 G/DL (30.0-36.0); MCV 85.5 FL (86-99); MEAN PLAT.VOLUME 10.5 uM^3 (9.0-12.4); PLATELET COUNT 280 K/uL (156-360); RBC DIS.WIDTH-CV 15.4 % (11.8-14.6); RBC DIS.WIDTH-SD 47.8 % (39-53); RED BLOOD COUNT 4.47 M/uL (4.00-5.50); WHITE BLOOD COUNT 15.8 K/uL (4.1-10.2)
[2016-12-14 06:14] LABS: ALKALINE PHOSPHATASE 83 IU/L (3-129); ANION GAP 10 MEQ/L (2-14); CHLORIDE 106 MEQ/L (99-109); GFR ESTIMATE (CALCULATED) > 59 mL/min/; GLUCOSE 153 mg/dL (70-99); POTASSIUM 4.2 MEQ/L (3.7-5.4); SAMPLE HEMOLYSIS CHECK 0; SAMPLE ICTERIC CHECK 0; SAMPLE LIPEMIA CHECK 0; SODIUM 137 MEQ/L (136-147); TOTAL BILIRUBIN 0.4 MG/DL (0.0-1.0); UREA NITROGEN (BUN) 12 mg/dL (9-23)
[2016-12-14 07:01] VITALS: BP 121/70
[2016-12-14 16:56] VITALS: BP 154/77
[2016-12-14 19:40] VITALS: BP 138/68
[2016-12-14 23:00] VITALS: BP 158/97
[2016-12-15 03:15] VITALS: BP 153/77
[2016-12-15 08:38] LABS: CARBOXY HGB 2.3 % (0-5); METHEMOGLOBIN 1.8 % (0-1.5); PCO2 38 mm Hg (35-45)
[2016-12-15 08:39] LABS: BICARBONATE 25.2 mEq/L (22-26); COMMENTS - BLOOD GASES A+C+; O2 FLOW 2 L/MIN; PO2 53 mm Hg (80-100); SITE LR; pH 7.43 (7.35-7.45)
[2016-12-15 08:40] LABS: DEVICE NC; TOTAL RESP RATE 24 resp/min
[2016-12-15 08:46] LABS: HEMATOCRIT 40.5 % (38.0-50.0); MCH 28.6 PG (29.0-34.0); MCHC 33.1 G/DL (30.0-36.0); MCV 86.4 FL (86-99); RBC DIS.WIDTH-CV 15.8 % (11.8-14.6); RBC DIS.WIDTH-SD 49.2 % (39-53); RED BLOOD COUNT 4.69 M/uL (4.00-5.50); WHITE BLOOD COUNT 25.2 K/uL (4.1-10.2)
[2016-12-15 09:15] LABS: ANION GAP 8 MEQ/L (2-14); CHLORIDE 100 MEQ/L (99-109); GFR ESTIMATE (CALCULATED) > 59 mL/min/; POTASSIUM 4.4 MEQ/L (3.7-5.4); SAMPLE HEMOLYSIS CHECK 0; SAMPLE ICTERIC CHECK 0; SAMPLE LIPEMIA CHECK 0; SODIUM 134 MEQ/L (136-147); UREA NITROGEN (BUN) 16 mg/dL (9-23)
[2016-12-15 09:16] LABS: TROP-I INTERPRETATION NEGATIVE; TROPONIN-I 0.04 ng/mL (0.0-0.30)
[2016-12-15 09:17] LABS: GLUCOSE 100 mg/dL (70-99)
[2016-12-15 09:54] LABS: MEAN PLAT.VOLUME 10.3 uM^3 (9.0-12.4); PLAT.SUFFICIENCY ADEQUATE; PLATELET CLUMPS PRESENT - PLATELET COUNT APPEARS ADQ.; PLATELET COUNT 278 K/uL (156-360)
[2016-12-15 12:17] VITALS: BP 141/78
[2016-12-15 19:30] VITALS: BP 176/97
[2016-12-15 23:56] VITALS: BP 172/80
[2016-12-16] VITALS (7 sets, daily range): BP systolic 135–170; BP diastolic 71–87
[2016-12-16 05:23] LABS: HEMATOCRIT 39.5 % (38.0-50.0); MCH 27.3 PG (29.0-34.0); MCHC 32.2 G/DL (30.0-36.0); MCV 84.8 FL (86-99); MEAN PLAT.VOLUME 10.7 uM^3 (9.0-12.4); PLATELET COUNT 273 K/uL (156-360); RBC DIS.WIDTH-CV 15.6 % (11.8-14.6); RBC DIS.WIDTH-SD 48.1 % (39-53); RED BLOOD COUNT 4.66 M/uL (4.00-5.50)
[2016-12-16 05:57] LABS: ANION GAP 11 MEQ/L (2-14); CHLORIDE 98 MEQ/L (99-109); GFR ESTIMATE (CALCULATED) > 59 mL/min/; GLUCOSE 139 mg/dL (70-99); MAGNESIUM 2.1 mg/dl (1.3-2.7); POTASSIUM 4.4 MEQ/L (3.7-5.4); SAMPLE HEMOLYSIS CHECK 0; SAMPLE ICTERIC CHECK 0; SAMPLE LIPEMIA CHECK 0; SODIUM 135 MEQ/L (136-147); UREA NITROGEN (BUN) 19 mg/dL (9-23)
[2016-12-17 04:00] VITALS: BP 137/76
[2016-12-17 05:51] LABS: HEMATOCRIT 34.7 % (38.0-50.0); MCH 28.3 PG (29.0-34.0); MCHC 33.7 G/DL (30.0-36.0); MEAN PLAT.VOLUME 10.7 uM^3 (9.0-12.4); NRBC (%) 0.1 /100 WBC (0-0); PLATELET COUNT 256 K/uL (156-360); RBC DIS.WIDTH-CV 15.7 % (11.8-14.6); RBC DIS.WIDTH-SD 48.4 % (39-53); RED BLOOD COUNT 4.13 M/uL (4.00-5.50); WHITE BLOOD COUNT 24.2 K/uL (4.1-10.2)
[2016-12-17 08:09] VITALS: BP 143/73
[2016-12-17 11:00] VITALS: BP 142/67
[2016-12-17 15:28] VITALS: BP 134/73
[2016-12-17 19:25] VITALS: BP 148/77
[2016-12-17 23:45] VITALS: BP 150/82
[2016-12-18 03:16] VITALS: BP 137/77
[2016-12-18 06:44] LABS: HEMATOCRIT 37.7 % (38.0-50.0); MCH 27.2 PG (29.0-34.0); MCHC 32.4 G/DL (30.0-36.0); NRBC (%) 0.1 /100 WBC (0-0); RBC DIS.WIDTH-CV 15.6 % (11.8-14.6); RBC DIS.WIDTH-SD 47.7 % (39-53); RED BLOOD COUNT 4.49 M/uL (4.00-5.50); WHITE BLOOD COUNT 22.6 K/uL (4.1-10.2)
[2016-12-18 07:20] VITALS: BP 135/78
[2016-12-18 08:15] LABS: HEMATOLOGY COMMENT 1 SMEAR COMPATIBLE; MEAN PLAT.VOLUME 10.5 uM^3 (9.0-12.4); PLAT.SUFFICIENCY ADEQUATE; PLATELET COUNT 278 K/uL (156-360)
[2016-12-18 11:44] VITALS: BP 153/73
[2016-12-18 16:18] VITALS: BP 166/76
[2016-12-18 19:13] VITALS: BP 164/98
[2016-12-19 00:07] VITALS: BP 164/91
[2016-12-19 03:33] VITALS: BP 159/72
[2016-12-19 06:35] LABS: MCH 27.4 PG (29.0-34.0); MCHC 32.2 G/DL (30.0-36.0); MCV 85.3 FL (86-99); MEAN PLAT.VOLUME 10.9 uM^3 (9.0-12.4); PLATELET COUNT 304 K/uL (156-360); RBC DIS.WIDTH-CV 15.7 % (11.8-14.6); RBC DIS.WIDTH-SD 49.1 % (39-53); RED BLOOD COUNT 4.34 M/uL (4.00-5.50); WHITE BLOOD COUNT 25.8 K/uL (4.1-10.2)
[2016-12-19 08:08] VITALS: BP 144/67
[2016-12-19 12:07] VITALS: BP 141/72
[2016-12-19 16:30] VITALS: BP 176/84
[2016-12-19 20:25] VITALS: BP 140/72
[2016-12-20 00:18] VITALS: BP 130/75
[2016-12-20 03:36] VITALS: BP 144/65
[2016-12-20 07:36] VITALS: BP 142/73
[2016-12-20 10:08] LABS: HEMATOCRIT 38.7 % (38.0-50.0); MCH 27.5 PG (29.0-34.0); MCHC 31.8 G/DL (30.0-36.0); MCV 86.4 FL (86-99); NRBC (%) 0.2 /100 WBC (0-0); RBC DIS.WIDTH-CV 15.8 % (11.8-14.6); RBC DIS.WIDTH-SD 50.1 % (39-53); RED BLOOD COUNT 4.48 M/uL (4.00-5.50); WHITE BLOOD COUNT 24.1 K/uL (4.1-10.2)
[2016-12-20 10:37] LABS: ANION GAP 9 MEQ/L (2-14); CHLORIDE 99 MEQ/L (99-109); GFR ESTIMATE (CALCULATED) > 59 mL/min/; GLUCOSE 98 mg/dL (70-99); POTASSIUM 3.9 MEQ/L (3.7-5.4); SAMPLE HEMOLYSIS CHECK 0; SAMPLE ICTERIC CHECK 0; SAMPLE LIPEMIA CHECK 0; SODIUM 139 MEQ/L (136-147); UREA NITROGEN (BUN) 26 mg/dL (9-23)
[2016-12-20 10:41] LABS: MEAN PLAT.VOLUME 10.5 uM^3 (9.0-12.4); PLAT.SUFFICIENCY ADEQUATE; PLATELET COUNT 318 K/uL (156-360)
[2016-12-20] MEDS ORDERED: CEFTIN500 MG PO (12:16)
[2016-12-20] MEDS ORDERED: TRAMADOL HCL50 MG PO (12:16)
[2016-12-20] MEDS ORDERED: THERAGRAN1 TABLET PO (12:16)
[2016-12-20] MEDS ORDERED: PREDNISONE10 MG PO (12:16)
[2016-12-20] MEDS ORDERED: FOLIC ACID1 MG PO (12:16)
[2016-12-20] MEDS ORDERED: Thiamine,Vitamin B1 PO (12:16)
[2016-12-20] MEDS ORDERED: CLONIDINE1 EAC2 TD (12:16)
[2016-12-20] MEDS ORDERED: ADVAIR HFA120 INHALA IH (12:16)
[2016-12-20] MEDS ORDERED: NICOTINE PATCH1 EAC2 TD (12:16)
[2016-12-20 15:11] VITALS: BP 135/66
[2016-12-21 00:08] VITALS: BP 145/65
[2016-12-21 08:39] VITALS: BP 132/62
[2016-12-21 15:50] VITALS: BP 137/65
[2016-12-21 23:17] VITALS: BP 137/71
[2016-12-22 08:19] VITALS: BP 130/69
[2016-12-22 15:28] VITALS: BP 134/63
== END 2016-12-22 17:29 | DRG 205 ==
LOC: TRA 14:22 → EME 14:22 → EDOF 17:25 → 4EAST 17:25 → ENRESERV 17:27 → EDOF 17:46 → ENRESERV 17:47 → 4EAST 20:12 → 3EAST 12-16 08:38 → ENRESERV 12-16 08:39 → 3EAST 12-16 09:16 → ENRESERV 12-16 09:20 → 4EAST 12-16 09:20 → ENRESERV 12-16 09:25 → 3EAST 12-16 09:34
PROVIDERS: Emergency Medicine; Hospitalist; Physician Assistant; Surgery
DX: S27.321A Contusion of lung, unilateral, initial encounter (principal); S22.42XA Multiple fractures of ribs, left side, initial encounter for closed fracture; S27.0XXA Traumatic pneumothorax, initial encounter; S32.029A Unspecified fracture of second lumbar vertebra, initial encounter for closed fracture; S32.039A Unspecified fracture of third lumbar vertebra, initial encounter for closed fracture; S32.049A Unspecified fracture of fourth lumbar vertebra, initial encounter for closed fracture; S40.819A Abrasion of unspecified upper arm, initial encounter; V03.10XA Pedestrian on foot injured in collision with car, pick-up truck or van in traffic accident, initial encounter; J96.01 Acute respiratory failure with hypoxia; J98.01 Acute bronchospasm; J44.1 Chronic obstructive pulmonary disease with (acute) exacerbation; I11.0 Hypertensive heart disease with heart failure; I50.33 Acute on chronic diastolic (congestive) heart failure; E78.5 Hyperlipidemia, unspecified; I48.0 Paroxysmal atrial fibrillation; I45.10 Unspecified right bundle-branch block; M25.522 Pain in left elbow; M54.2 Cervicalgia; F10.239 Alcohol dependence with withdrawal, unspecified; Y90.0 Blood alcohol level of less than 20 mg/100 ml; F17.210 Nicotine dependence, cigarettes, uncomplicated; Z96.652 Presence of left artificial knee joint; Z59.0 Homelessness; Z86.73 Personal history of transient ischemic attack (TIA), and cerebral infarction without residual deficits; Z88.0 Allergy status to penicillin; Z91.19 Patient's noncompliance with other medical treatment and regimen
CPT/HCPCS: 36600; 70450; 71010; 71020; 71260; 72125; 72129; 72132; 73080; 74177; 80048; 80053; 81003; 82150; 82550; 82553; 82803; 83605; 83690; 83735; 83880; 84100; 84484; 84999; 85025; 85027; 86900; 86901; 92526 GN; 92610 GN; 93005; 93306; 93970; 93971; 94010; 94640; 94640 76; 94644; 94799; 97530 GP; 99202; 99281; 99285; G0480; J0360; J0696; J1170; J1644; J1940; J2270; J2920; J2930; J7050; J7512

== ENCOUNTER 2017-02-21 16:50 | Emergency (ER) | payer OTHER ==
[~2017-02-21] VITALS: Ht 172.7 cm; Wt 82.3 kg
[~2017-02-21 16:50] MED LIST changes: +ADVAIR HFA120 INHALA IH; +CEFTIN500 MG PO; +CLONIDINE1 EAC2 TD; +FOLIC ACID1 MG PO; +PREDNISONE10 MG PO; +THERAGRAN1 TABLET PO; +TRAMADOL HCL50 MG PO; +Thiamine,Vitamin B1 PO
[2017-02-21 18:34] VITALS: BP 160/82
== END 2017-02-21 18:36 | disposition home or self-care (01) ==
LOC: EME 16:50
DX: M79.604 Pain in right leg (principal); M79.605 Pain in left leg; I11.0 Hypertensive heart disease with heart failure; I50.9 Heart failure, unspecified; J45.909 Unspecified asthma, uncomplicated; Z96.652 Presence of left artificial knee joint; Z88.0 Allergy status to penicillin; F19.10 Other psychoactive substance abuse, uncomplicated; F10.10 Alcohol abuse, uncomplicated; F17.200 Nicotine dependence, unspecified, uncomplicated
CPT/HCPCS: 99281; 99284; J1885

== ENCOUNTER 2017-05-01 15:12 | Emergency (ER) | payer OTHER ==
[~2017-05-01] VITALS: Ht 175.3 cm; Wt 81.8 kg
[2017-05-01 16:18] LABS: HEMATOCRIT 46.6 % (38.0-50.0); MCH 28.3 PG (29.0-34.0); MCHC 32.2 G/DL (30.0-36.0); MCV 87.9 FL (86-99); RBC DIS.WIDTH-CV 16.3 % (11.8-14.6); RBC DIS.WIDTH-SD 52.4 % (39-53); WHITE BLOOD COUNT 9.7 K/uL (4.1-10.2)
[2017-05-01 16:28] LABS: CHLORIDE 109 mEq/L (99-109); POTASSIUM 4.3 mEq/L (3.7-5.4); SODIUM 143 mEq/L (136-147)
[2017-05-01 16:30] LABS: GLUCOSE 91 mg/dL (70-99)
[2017-05-01 16:32] LABS: ANION GAP 9 MEQ/L (2-14)
[2017-05-01 16:34] LABS: GFR ESTIMATE (CALCULATED) > 59 mL/min/ (58.99-99999)
[2017-05-01 16:35] LABS: UREA NITROGEN (BUN) 11 mg/dL (9-23)
[2017-05-01 16:41] LABS: TROP-I INTERPRETATION NEGATIVE; TROPONIN-I < 0.01 ng/mL (0.0-0.30)
[2017-05-01 17:00] LABS: PLAT.SUFFICIENCY ADEQUATE; PLATELET COUNT 301 K/uL (156-360)
[2017-05-01 18:38] LABS: TROP-I INTERPRETATION NEGATIVE; TROPONIN-I < 0.01 ng/mL (0.0-0.30)
[2017-05-01 19:22] VITALS: BP 151/88
== END 2017-05-01 19:23 | disposition home or self-care (01) ==
LOC: EME 15:12
PROVIDERS: Nurse Practitioner Family
DX: R07.89 Other chest pain (principal); J45.909 Unspecified asthma, uncomplicated; I10 Essential (primary) hypertension; F17.200 Nicotine dependence, unspecified, uncomplicated; Z96.652 Presence of left artificial knee joint; Z88.0 Allergy status to penicillin
CPT/HCPCS: 71020; 80048; 84484; 85027; 93005; 94640; 99281; 99284

== ENCOUNTER 2017-05-17 08:20 | Emergency (ER) | payer OTHER ==
[~2017-05-17] VITALS: Ht 175.3 cm; Wt 96.2 kg
[2017-05-17 10:11] VITALS: BP 187/97
== END 2017-05-17 10:55 | disposition home or self-care (01) ==
LOC: EME 08:20
DX: Z76.89 Persons encountering health services in other specified circumstances (principal); Z59.0 Homelessness; I11.0 Hypertensive heart disease with heart failure; I50.9 Heart failure, unspecified; X31.XXXA Exposure to excessive natural cold, initial encounter; F10.10 Alcohol abuse, uncomplicated; F17.200 Nicotine dependence, unspecified, uncomplicated; J45.909 Unspecified asthma, uncomplicated; Z96.652 Presence of left artificial knee joint; Z88.0 Allergy status to penicillin
CPT/HCPCS: 99281; 99284

== ENCOUNTER 2017-07-05 08:10 | Emergency (ER) | payer OTHER ==
[~2017-07-05] VITALS: Ht 175.3 cm; Wt 90.9 kg
[2017-07-05] MEDS ORDERED: MOTRIN800 MG PO (09:46)
[2017-07-05] MEDS ORDERED: CATAPRES-TTS 31 EACH TD (09:46)
[2017-07-05 10:15] VITALS: BP 181/77
== END 2017-07-05 10:16 | disposition home or self-care (01) ==
LOC: EME 08:10
DX: G89.29 Other chronic pain (principal); M79.605 Pain in left leg; Z96.652 Presence of left artificial knee joint; Z59.0 Homelessness; I10 Essential (primary) hypertension; T46.5X6A Underdosing of other antihypertensive drugs, initial encounter; Z91.128 Patient's intentional underdosing of medication regimen for other reason; F17.200 Nicotine dependence, unspecified, uncomplicated; Z71.6 Tobacco abuse counseling; Z88.0 Allergy status to penicillin
CPT/HCPCS: 73564; 99281; 99284

== ENCOUNTER 2017-07-14 10:21 | Emergency (ER) | payer OTHER ==
[~2017-07-14] VITALS: Ht 175.3 cm; Wt 77.2 kg
[~2017-07-14 10:21] MED LIST changes: +CATAPRES-TTS 31 EACH TD
[2017-07-14 10:58] LABS: BASOPHIL (%) 0.4 % (0-1); EOSINOPHIL (%) 5.8 % (0-5); EOSINOPHIL COUNT 0.5 K/uL (0-0.3); HEMATOCRIT 39.5 % (38.0-50.0); HEMOGLOBIN 12.6 G/DL (12.5-16.6); IMMATURE GRANULOCYTE (%) 0.2 % (0.0-0.7); LYMPHOCYTE (%) 25.1 % (15-42); LYMPHOCYTE COUNT 2.2 K/uL (1.0-2.8); MCH 27.5 PG (29.0-34.0); MCHC 31.9 G/DL (30.0-36.0); MCV 86.1 FL (86-99); MONOCYTE (%) 13.2 % (3-12); MONOCYTE COUNT 1.2 K/uL (0-0.8); NEUTROPHIL (%) 55.3 % (45-76); NEUTROPHIL COUNT 4.9 K/uL (1.8-6.4); PLATELET COUNT 234 K/uL (156-360); RBC DIS.WIDTH-CV 15.4 % (11.8-14.6); RBC DIS.WIDTH-SD 48.7 % (39-53); RED BLOOD COUNT 4.59 M/uL (4.00-5.50); WHITE BLOOD COUNT 8.9 K/uL (4.1-10.2)
[2017-07-14 11:06] LABS: ALBUMIN 3.3 g/dL (3.2-4.8); CHLORIDE 109 mEq/L (99-109); SODIUM 140 mEq/L (136-147)
[2017-07-14 11:08] LABS: GLUCOSE 89 mg/dL (70-99)
[2017-07-14 11:10] LABS: TOTAL BILIRUBIN 0.2 mg/dL (0.0-1.0)
[2017-07-14 11:12] LABS: ALKALINE PHOSPHATASE 144 IU/L (3-129); GFR ESTIMATE (CALCULATED) > 59 mL/min/ (58.99-99999)
[2017-07-14 11:13] LABS: UREA NITROGEN (BUN) 13 mg/dL (9-23)
[2017-07-14 11:14] LABS: AST (GOT) 14 IU/L (2-34)
[2017-07-14 11:15] LABS: ALT (GPT) 11 IU/L (3-49); LIPASE 33 U/L (1.0-51.0)
[2017-07-14 12:48] LABS: APPEARANCE CLEAR ((CLEAR)); BILIRUBIN NEGATIVE; BLOOD NEGATIVE; COLOR YELLOW ((YELLOW)); GLUCOSE (STRIP) NEGATIVE; KETONES NEGATIVE; LEUKOCYTES NEGATIVE; NITRITE NEGATIVE; PROTEIN (STRIP) 100; SPECIFIC GRAVITY 1.018 (1.000-1.030); UROBILINOGEN 0.2 MG/DL (0.2-1.0)
[2017-07-14 12:59] LABS: BACTERIA RARE /HPF; EPITHELIAL CELLS RARE /HPF; HYALINE CASTS 0-5 /LPF; MUCUS TRACE /LPF; RED BLOOD CELLS 0-5 /HPF (0-5); WHITE BLOOD CELLS 0-5 /HPF (0-5)
[2017-07-14] MEDS ORDERED: MIRALAX17 GM PO (13:13)
[2017-07-14 13:37] VITALS: BP 161/91
== END 2017-07-14 14:28 | disposition home or self-care (01) ==
LOC: EME 10:21
PROVIDERS: Emergency Medicine
DX: K59.00 Constipation, unspecified (principal); R10.30 Lower abdominal pain, unspecified; R22.42 Localized swelling, mass and lump, left lower limb; J45.909 Unspecified asthma, uncomplicated; I10 Essential (primary) hypertension; F17.200 Nicotine dependence, unspecified, uncomplicated; Z96.652 Presence of left artificial knee joint; Z88.0 Allergy status to penicillin
CPT/HCPCS: 71045; 74177; 80053; 81003; 83690; 85025; 93971; 99281; 99284; J2270; J2405; J7030

== ENCOUNTER 2017-07-30 15:18 | Emergency (ER) | payer OTHER ==
[~2017-07-30] VITALS: Ht 175.3 cm; Wt 88.4 kg
[~2017-07-30 15:18] MED LIST changes: +MIRALAX17 GM PO
[2017-07-30 17:56] VITALS: BP 170/91
== END 2017-07-30 18:09 | disposition home or self-care (01) ==
LOC: EME 15:18
DX: M25.562 Pain in left knee (principal); G89.29 Other chronic pain; Z96.652 Presence of left artificial knee joint; I10 Essential (primary) hypertension; J45.909 Unspecified asthma, uncomplicated; F17.200 Nicotine dependence, unspecified, uncomplicated; Z59.0 Homelessness; Z88.0 Allergy status to penicillin
CPT/HCPCS: 73564; 99281; 99284

== ENCOUNTER 2017-08-01 13:33 | Emergency (ER) | payer OTHER ==
[~2017-08-01] VITALS: Ht 175.3 cm; Wt 89.0 kg
[2017-08-01 15:28] LABS: MCH 27.2 PG (29.0-34.0); MCHC 32.4 G/DL (30.0-36.0); MCV 84.1 FL (86-99); PLATELET COUNT 291 K/uL (156-360); RBC DIS.WIDTH-CV 15.4 % (11.8-14.6); RBC DIS.WIDTH-SD 47.1 % (39-53); RED BLOOD COUNT 5.47 M/uL (4.00-5.50); WHITE BLOOD COUNT 11.4 K/uL (4.1-10.2)
[2017-08-01 15:29] LABS: HEMOGLOBIN 14.9 G/DL (12.5-16.6)
[2017-08-01 15:32] LABS: ALBUMIN 4.1 g/dL (3.2-4.8); CHLORIDE 107 mEq/L (99-109); SODIUM 140 mEq/L (136-147)
[2017-08-01 15:35] LABS: GLUCOSE 96 mg/dL (70-99); TOTAL PROTEIN 7.5 g/dL (6.4-8.3)
[2017-08-01 15:37] LABS: TOTAL BILIRUBIN 0.4 mg/dL (0.0-1.0)
[2017-08-01 15:38] LABS: ALKALINE PHOSPHATASE 165 IU/L (3-129); GFR ESTIMATE (CALCULATED) > 59 mL/min/ (58.99-99999)
[2017-08-01 15:39] LABS: UREA NITROGEN (BUN) 22 mg/dL (9-23)
[2017-08-01 15:40] LABS: AST (GOT) 18 IU/L (2-34)
[2017-08-01 15:41] LABS: ALT (GPT) 14 IU/L (3-49)
[2017-08-01 16:40] LABS: SERUM ETHYL ALCOHOL < 10 mg/dL
[2017-08-01 19:06] LABS: LIPASE 47 U/L (1.0-51.0)
[2017-08-01 19:08] LABS: APPEARANCE CLEAR ((CLEAR)); BILIRUBIN NEGATIVE; BLOOD NEGATIVE; COLOR YELLOW ((YELLOW)); GLUCOSE (STRIP) NEGATIVE; KETONES NEGATIVE; LEUKOCYTES NEGATIVE; NITRITE NEGATIVE; PROTEIN (STRIP) >=500; UROBILINOGEN 0.2 MG/DL (0.2-1.0)
[2017-08-01 19:17] LABS: BACTERIA RARE /HPF; EPITHELIAL CELLS RARE /HPF; HYALINE CASTS 0-5 /LPF; MUCUS TRACE /LPF; RED BLOOD CELLS 0-5 /HPF (0-5); UCUL ADDED? YES
[2017-08-01 22:00] VITALS: BP 165/70
[2017-08-02] MEDS ORDERED: NORCO 5/3251 TABLET PO (20:14)
== END 2017-08-01 22:38 | disposition home or self-care (01) ==
LOC: EME 13:33
PROVIDERS: Physician Assistant Medical
DX: R51 Headache (principal); R10.9 Unspecified abdominal pain; Z88.0 Allergy status to penicillin
CPT/HCPCS: 70450; 74177; 80053; 81003; 83690; 84484; 85027; 87086; 99281; 99285; G0480; J7030

== ENCOUNTER 2017-08-02 16:41 | Emergency (ER) | payer OTHER ==
[~2017-08-02] VITALS: Ht 175.3 cm; Wt 41.8 kg
[2017-08-02 19:03] LABS: BASOPHIL (%) 0.5 % (0-1); BASOPHIL COUNT 0.1 K/uL (0-0.1); EOSINOPHIL (%) 4.4 % (0-5); EOSINOPHIL COUNT 0.5 K/uL (0-0.3); HEMOGLOBIN 13.7 G/DL (12.5-16.6); IMMATURE GRANULOCYTE (%) 0.3 % (0.0-0.7); LYMPHOCYTE (%) 23.9 % (15-42); LYMPHOCYTE COUNT 2.8 K/uL (1.0-2.8); MCH 27.5 PG (29.0-34.0); MCHC 32.6 G/DL (30.0-36.0); MCV 84.3 FL (86-99); MONOCYTE (%) 12.3 % (3-12); MONOCYTE COUNT 1.4 K/uL (0-0.8); NEUTROPHIL (%) 58.6 % (45-76); NEUTROPHIL COUNT 6.8 K/uL (1.8-6.4); PLATELET COUNT 275 K/uL (156-360); RBC DIS.WIDTH-CV 15.4 % (11.8-14.6); RBC DIS.WIDTH-SD 46.7 % (39-53); RED BLOOD COUNT 4.98 M/uL (4.00-5.50); WHITE BLOOD COUNT 11.5 K/uL (4.1-10.2)
[2017-08-02 19:10] LABS: CHLORIDE 107 mEq/L (99-109); INTER. NORMALIZED RATIO 1.1; POTASSIUM 3.7 mEq/L (3.7-5.4); SODIUM 140 mEq/L (136-147)
[2017-08-02 19:12] LABS: GLUCOSE 78 mg/dL (70-99)
[2017-08-02 19:16] LABS: CREATININE 0.8 mg/dL (0.6-1.3); GFR ESTIMATE (CALCULATED) > 59 mL/min/ (58.99-99999)
[2017-08-02 19:17] LABS: UREA NITROGEN (BUN) 14 mg/dL (9-23)
[2017-08-02] MEDS ORDERED: NORCO 5/3251 TABLET PO (20:14)
[2017-08-02 20:37] VITALS: BP 167/97
== END 2017-08-02 21:21 | disposition home or self-care (01) ==
LOC: EME 16:41
PROVIDERS: Emergency Medicine
DX: S83.92XA Sprain of unspecified site of left knee, initial encounter (principal); W18.30XA Fall on same level, unspecified, initial encounter; Z96.652 Presence of left artificial knee joint; Z59.0 Homelessness; J45.909 Unspecified asthma, uncomplicated; I10 Essential (primary) hypertension; Z88.0 Allergy status to penicillin; F17.200 Nicotine dependence, unspecified, uncomplicated
CPT/HCPCS: 73564; 80048; 85025; 85610; 99281; 99285; J7040

== ENCOUNTER 2017-08-03 15:13 | Emergency (ER) | payer OTHER ==
[~2017-08-03] VITALS: Ht 175.3 cm; Wt 81.2 kg
[~2017-08-03 15:13] MED LIST changes: +NORCO 5/3251 TABLET PO
[2017-08-03 16:31] LABS: HEMATOCRIT 41.4 % (38.0-50.0); HEMOGLOBIN 13.5 G/DL (12.5-16.6); MCH 27.3 PG (29.0-34.0); MCHC 32.6 G/DL (30.0-36.0); MCV 83.8 FL (86-99); PLATELET COUNT 277 K/uL (156-360); RBC DIS.WIDTH-CV 15.4 % (11.8-14.6); RBC DIS.WIDTH-SD 46.7 % (39-53); RED BLOOD COUNT 4.94 M/uL (4.00-5.50); WHITE BLOOD COUNT 11.4 K/uL (4.1-10.2)
[2017-08-03 16:40] LABS: CHLORIDE 107 mEq/L (99-109); POTASSIUM 3.8 mEq/L (3.7-5.4); SODIUM 139 mEq/L (136-147)
[2017-08-03 16:42] LABS: GLUCOSE 93 mg/dL (70-99)
[2017-08-03 16:45] LABS: SERUM ETHYL ALCOHOL < 10 mg/dL
[2017-08-03 16:46] LABS: CREATININE 0.8 mg/dL (0.6-1.3); GFR ESTIMATE (CALCULATED) > 59 mL/min/ (58.99-99999)
[2017-08-03 16:47] LABS: UREA NITROGEN (BUN) 15 mg/dL (9-23)
[2017-08-03 17:03] LABS: AMPHETAMINE NEGATIVE (500 ng/mL); BARBITURATES NEGATIVE (200 ng/mL); BENZODIAZEPINES NEGATIVE (150 ng/mL); BUPRENORPHINE NEGATIVE (10 ng/mL); COCAINE NEGATIVE (150 ng/mL); METHADONE NEGATIVE (200 ng/mL); METHAMPHETAMINE NEGATIVE (500 ng/mL); OPIATES (MORPHINE) NEGATIVE (100 ng/mL); OXYCODONE NEGATIVE (100 ng/mL); PHENCYCLIDINE NEGATIVE (25 ng/mL); PROPOXYPHENE NEGATIVE (300 ng/mL); THC CANNABINOIDS NEGATIVE (50 ng/mL); TRICYCLIC ANTIDEPRESSANTS NEGATIVE (300 ng/mL)
[2017-08-03 17:21] LABS: ACETAMINOPHEN (TYLENOL) < 10 mcg/mL (10-30)
[2017-08-03 18:07] VITALS: BP 188/84
== END 2017-08-03 18:51 | disposition home or self-care (01) ==
LOC: EME 15:13
PROVIDERS: Emergency Medicine
DX: F32.9 Major depressive disorder, single episode, unspecified (principal); F19.10 Other psychoactive substance abuse, uncomplicated; J45.909 Unspecified asthma, uncomplicated; I11.0 Hypertensive heart disease with heart failure; Z88.0 Allergy status to penicillin; F17.200 Nicotine dependence, unspecified, uncomplicated; R45.850 Homicidal ideations
CPT/HCPCS: 80048; 85027; 99281; 99283; G0480

== ENCOUNTER 2017-08-05 18:58 | Observation (INO) | payer OTHER ==
[~2017-08-05] VITALS: Ht 175.3 cm; Wt 88.4 kg
[2017-08-05 19:17] LABS: HEMATOCRIT 40.2 % (38.0-50.0); HEMOGLOBIN 13.1 G/DL (12.5-16.6); MCH 27.9 PG (29.0-34.0); MCHC 32.6 G/DL (30.0-36.0); MCV 85.5 FL (86-99); RBC DIS.WIDTH-CV 15.8 % (11.8-14.6)
[2017-08-05 19:27] LABS: CHLORIDE 110 mEq/L (99-109); POTASSIUM 3.7 mEq/L (3.7-5.4); SODIUM 142 mEq/L (136-147)
[2017-08-05 19:29] LABS: GLUCOSE 89 mg/dL (70-99)
[2017-08-05 19:33] LABS: GFR ESTIMATE (CALCULATED) > 59 mL/min/ (58.99-99999)
[2017-08-05 19:34] LABS: UREA NITROGEN (BUN) 16 mg/dL (9-23)
[2017-08-05 19:40] LABS: TROP-I INTERPRETATION NEGATIVE; TROPONIN-I < 0.01 ng/mL (0.0-0.30)
[2017-08-05 20:13] LABS: PLAT.SUFFICIENCY DECREASED; PLATELET COUNT 273 K/uL (156-360)
[2017-08-05 22:55] LABS: SERUM ETHYL ALCOHOL 13 mg/dL
[2017-08-06 00:15] VITALS: BP 162/83
[2017-08-06 02:55] LABS: TROP-I INTERPRETATION NEGATIVE; TROPONIN-I < 0.01 ng/mL (0.0-0.30)
[2017-08-06 04:09] VITALS: BP 142/71
[2017-08-06 07:05] LABS: TROP-I INTERPRETATION NEGATIVE; TROPONIN-I < 0.01 ng/mL (0.0-0.30)
[2017-08-06 07:17] LABS: HDL CHOLESTEROL 43 MG/DL (Desirable>=40); LDL CHOLESTEROL 85 mg/dL (Desirable<100); NON-HDL CHOLESTEROL 96 mg/dL (Desirable<160); TOTAL CHOLESTEROL 139 mg/dL (Desirable<200); TRIGLYCERIDES 53 MG/DL (Normal: <150)
[2017-08-06 08:00] VITALS: BP 135/73
[2017-08-06] MEDS ORDERED: LEVAQUIN750 MG PO (11:39)
[2017-08-06] MEDS ORDERED: THIAMINE HCL100 MG PO (11:39)
[2017-08-06] MEDS ORDERED: FOLIC ACID1 MG PO (11:39)
[2017-08-06] MEDS ORDERED: CHLORDIAZEPOXID25 MG PO (11:39)
[2017-08-06] MEDS ORDERED: THERAGRAN1 TABLET PO (11:39)
[2017-08-06] MEDS ORDERED: LOPRESSOR25 MG PO (11:39)
[2017-08-06] MEDS ORDERED: PROBIOTIC1 EAC1 PO (11:39)
[2017-08-06] MEDS ORDERED: TUMS500 MG PO (11:39)
[2017-08-06] MEDS ORDERED: NICOTINE PATCH1 EAC2 TD (11:39)
[2017-08-06 11:50] VITALS: BP 143/66
== END 2017-08-06 15:07 | disposition home or self-care (01) ==
LOC: EME → EDBD 18:58 → EDOF 22:38 → 5WEST 22:38 → EDOF 22:38 → ENRESERV 22:39 → 5WEST 23:53
PROVIDERS: Physician Assistant Medical
DX: R07.9 Chest pain, unspecified (principal); I16.0 Hypertensive urgency; I10 Essential (primary) hypertension; I45.10 Unspecified right bundle-branch block; F17.210 Nicotine dependence, cigarettes, uncomplicated; F10.220 Alcohol dependence with intoxication, uncomplicated; Y90.0 Blood alcohol level of less than 20 mg/100 ml; F19.10 Other psychoactive substance abuse, uncomplicated; Z59.0 Homelessness; Z91.14 Patient's other noncompliance with medication regimen; Z91.19 Patient's noncompliance with other medical treatment and regimen; I48.0 Paroxysmal atrial fibrillation; Z96.652 Presence of left artificial knee joint; Z82.49 Family history of ischemic heart disease and other diseases of the circulatory system; Z83.3 Family history of diabetes mellitus; Z88.0 Allergy status to penicillin
CPT/HCPCS: 71046; 80048; 80061; 83880; 84484; 85027; 93005; 94640; 94640 76; 94760; 99202; 99281; 99285; G0378; G0480; J1644; J1956; S0030

== ENCOUNTER 2017-08-09 07:37 | Emergency (ER) | payer OTHER ==
[~2017-08-09] VITALS: Ht 175.3 cm; Wt 89.9 kg
[~2017-08-09 07:37] MED LIST changes: +CHLORDIAZEPOXID25 MG PO; +LOPRESSOR25 MG PO; +PROBIOTIC1 EAC1 PO; +THIAMINE HCL100 MG PO; +TUMS500 MG PO
[2017-08-09 08:29] LABS: HEMATOCRIT 44.5 % (38.0-50.0); HEMOGLOBIN 14.5 G/DL (12.5-16.6); MCH 27.8 PG (29.0-34.0); MCHC 32.6 G/DL (30.0-36.0); MCV 85.2 FL (86-99); RBC DIS.WIDTH-CV 15.7 % (11.8-14.6); RBC DIS.WIDTH-SD 48.8 % (39-53); RED BLOOD COUNT 5.22 M/uL (4.00-5.50); WHITE BLOOD COUNT 11.6 K/uL (4.1-10.2)
[2017-08-09 08:41] LABS: ALBUMIN 3.7 g/dL (3.2-4.8); CHLORIDE 106 mEq/L (99-109); SODIUM 142 mEq/L (136-147)
[2017-08-09 08:44] LABS: GLUCOSE 101 mg/dL (70-99); TOTAL PROTEIN 6.8 g/dL (6.4-8.3)
[2017-08-09 08:46] LABS: TOTAL BILIRUBIN 0.3 mg/dL (0.0-1.0)
[2017-08-09 08:47] LABS: ALKALINE PHOSPHATASE 157 IU/L (3-129); CREATININE 0.9 mg/dL (0.6-1.3); GFR ESTIMATE (CALCULATED) > 59 mL/min/ (58.99-99999); SERUM ETHYL ALCOHOL < 10 mg/dL
[2017-08-09 08:48] LABS: UREA NITROGEN (BUN) 16 mg/dL (9-23)
[2017-08-09 08:49] LABS: AST (GOT) 21 IU/L (2-34)
[2017-08-09 08:50] LABS: ALT (GPT) 18 IU/L (3-49)
[2017-08-09 08:51] LABS: TROP-I INTERPRETATION NEGATIVE; TROPONIN-I < 0.01 ng/mL (0.0-0.30)
[2017-08-09 08:57] LABS: POTASSIUM 4.5 mEq/L (3.7-5.4)
[2017-08-09 09:05] LABS: PLAT.SUFFICIENCY ADEQUATE; PLATELET COUNT 296 K/uL (156-360)
[2017-08-09 10:52] LABS: TROP-I INTERPRETATION NEGATIVE; TROPONIN-I < 0.01 ng/mL (0.0-0.30)
[2017-08-09 11:30] VITALS: BP 174/79
[2017-08-10] MEDS ORDERED: LIDOCAINE700 MG TP (01:07)
[2017-08-10] MEDS ORDERED: LIBRIUM25 MG PO (01:07)
== END 2017-08-09 12:11 | disposition home or self-care (01) ==
LOC: EME 07:37
PROVIDERS: Nurse Practitioner Family
DX: S22.42XA Multiple fractures of ribs, left side, initial encounter for closed fracture (principal); G89.29 Other chronic pain; R07.9 Chest pain, unspecified; T69.9XXA Effect of reduced temperature, unspecified, initial encounter; X31.XXXA Exposure to excessive natural cold, initial encounter; W19.XXXA Unspecified fall, initial encounter; F17.200 Nicotine dependence, unspecified, uncomplicated; J45.909 Unspecified asthma, uncomplicated; I11.0 Hypertensive heart disease with heart failure; I50.9 Heart failure, unspecified; Z96.652 Presence of left artificial knee joint; Z88.0 Allergy status to penicillin
CPT/HCPCS: 71046; 80053; 84484; 85027; 93005; 94640; 99281; 99285; G0480

== ENCOUNTER 2017-08-09 21:19 | Emergency (ER) | payer OTHER ==
[~2017-08-09] VITALS: Ht 175.3 cm; Wt 82.0 kg
[2017-08-09 21:45] LABS: HEMATOCRIT 42.5 % (38.0-50.0); HEMOGLOBIN 13.7 G/DL (12.5-16.6); MCH 27.4 PG (29.0-34.0); MCHC 32.2 G/DL (30.0-36.0); RBC DIS.WIDTH-CV 15.7 % (11.8-14.6); RBC DIS.WIDTH-SD 48.3 % (39-53); WHITE BLOOD COUNT 11.3 K/uL (4.1-10.2)
[2017-08-09 21:58] LABS: CHLORIDE 107 mEq/L (99-109); SODIUM 141 mEq/L (136-147)
[2017-08-09 22:00] LABS: GLUCOSE 129 mg/dL (70-99)
[2017-08-09 22:03] LABS: SERUM ETHYL ALCOHOL < 10 mg/dL
[2017-08-09 22:04] LABS: CREATININE 1.1 mg/dL (0.6-1.3); GFR ESTIMATE (CALCULATED) > 59 mL/min/ (58.99-99999)
[2017-08-09 22:05] LABS: UREA NITROGEN (BUN) 16 mg/dL (9-23)
[2017-08-09 22:06] LABS: TROP-I INTERPRETATION NEGATIVE; TROPONIN-I < 0.01 ng/mL (0.0-0.30)
[2017-08-09 22:28] LABS: HEMATOLOGY COMMENT 1 SN; PLAT.SUFFICIENCY ADEQUATE; PLATELET COUNT 310 K/uL (156-360)
[2017-08-10 00:05] LABS: TROP-I INTERPRETATION NEGATIVE; TROPONIN-I < 0.01 ng/mL (0.0-0.30)
[2017-08-10] MEDS ORDERED: LIBRIUM25 MG PO (01:07)
[2017-08-10] MEDS ORDERED: LIDOCAINE700 MG TP (01:07)
[2017-08-10 02:33] VITALS: BP 132/60
== END 2017-08-10 02:36 | disposition home or self-care (01) ==
LOC: EME → EDBD 21:19 → EME 08-10 02:36
PROVIDERS: Emergency Medicine
DX: R07.9 Chest pain, unspecified (principal); S22.32XD Fracture of one rib, left side, subsequent encounter for fracture with routine healing; F10.239 Alcohol dependence with withdrawal, unspecified; I10 Essential (primary) hypertension; I50.9 Heart failure, unspecified; J45.909 Unspecified asthma, uncomplicated; F17.200 Nicotine dependence, unspecified, uncomplicated; Z90.49 Acquired absence of other specified parts of digestive tract; Z96.652 Presence of left artificial knee joint; Z88.0 Allergy status to penicillin
CPT/HCPCS: 80048; 84484; 85027; 93005; 99281; 99285; G0480

== ENCOUNTER 2017-08-10 08:57 | Emergency (ER) | payer OTHER ==
[~2017-08-10] VITALS: Ht 175.3 cm; Wt 66.8 kg
[~2017-08-10 08:57] MED LIST changes: +LIBRIUM25 MG PO; +LIDOCAINE700 MG TP
[2017-08-10 10:48] LABS: HEMATOCRIT 42.5 % (38.0-50.0); HEMOGLOBIN 13.6 G/DL (12.5-16.6); MCH 27.3 PG (29.0-34.0); MCV 85.3 FL (86-99); PLATELET COUNT 301 K/uL (156-360); RBC DIS.WIDTH-CV 15.7 % (11.8-14.6); RBC DIS.WIDTH-SD 48.9 % (39-53); RED BLOOD COUNT 4.98 M/uL (4.00-5.50); WHITE BLOOD COUNT 10.1 K/uL (4.1-10.2)
[2017-08-10 10:57] LABS: ALBUMIN 3.6 g/dL (3.2-4.8)
[2017-08-10 10:58] LABS: CHLORIDE 107 mEq/L (99-109); SODIUM 142 mEq/L (136-147)
[2017-08-10 11:00] LABS: TOTAL PROTEIN 6.5 g/dL (6.4-8.3)
[2017-08-10 11:01] LABS: GLUCOSE 83 mg/dL (70-99)
[2017-08-10 11:02] LABS: TOTAL BILIRUBIN 0.3 mg/dL (0.0-1.0)
[2017-08-10 11:03] LABS: ALKALINE PHOSPHATASE 146 IU/L (3-129); SERUM ETHYL ALCOHOL 17 mg/dL
[2017-08-10 11:04] LABS: CREATININE 1.1 mg/dL (0.6-1.3); GFR ESTIMATE (CALCULATED) > 59 mL/min/ (58.99-99999)
[2017-08-10 11:05] LABS: UREA NITROGEN (BUN) 14 mg/dL (9-23)
[2017-08-10 11:07] LABS: ALT (GPT) 20 IU/L (3-49)
[2017-08-10 11:13] LABS: AST (GOT) 32 IU/L (2-34)
[2017-08-10 11:18] LABS: AMPHETAMINE NEGATIVE (500 ng/mL); BARBITURATES NEGATIVE (200 ng/mL); BENZODIAZEPINES PRESUMPTIVE POSITIVE (150 ng/mL); BUPRENORPHINE NEGATIVE (10 ng/mL); COCAINE NEGATIVE (150 ng/mL); METHADONE NEGATIVE (200 ng/mL); METHAMPHETAMINE NEGATIVE (500 ng/mL); OPIATES (MORPHINE) NEGATIVE (100 ng/mL); OXYCODONE NEGATIVE (100 ng/mL); PHENCYCLIDINE NEGATIVE (25 ng/mL); PROPOXYPHENE NEGATIVE (300 ng/mL); THC CANNABINOIDS NEGATIVE (50 ng/mL); TRICYCLIC ANTIDEPRESSANTS NEGATIVE (300 ng/mL)
[2017-08-10 11:57] LABS: BENZODIAZEPINES, URINE SCREEN POSITIVE (200 ng/mL)
[2017-08-10 17:48] VITALS: BP 189/93
== END 2017-08-10 18:36 | disposition home or self-care (01) ==
LOC: EME 08:57
PROVIDERS: Emergency Medicine
DX: F10.10 Alcohol abuse, uncomplicated (principal); Z59.0 Homelessness; J45.909 Unspecified asthma, uncomplicated; I10 Essential (primary) hypertension; Z96.652 Presence of left artificial knee joint; F17.200 Nicotine dependence, unspecified, uncomplicated; Z88.0 Allergy status to penicillin
CPT/HCPCS: 80053; 84999; 85027; 99281; 99285; G0480

== ENCOUNTER 2017-08-11 21:54 | Emergency (ER) | payer OTHER ==
[~2017-08-11] VITALS: Ht 175.3 cm; Wt 90.3 kg
[2017-08-11 22:38] LABS: HEMATOCRIT 42.6 % (38.0-50.0); HEMOGLOBIN 13.8 G/DL (12.5-16.6); MCH 27.6 PG (29.0-34.0); MCHC 32.4 G/DL (30.0-36.0); MCV 85.2 FL (86-99); PLATELET COUNT 302 K/uL (156-360); RBC DIS.WIDTH-CV 15.7 % (11.8-14.6); RBC DIS.WIDTH-SD 48.7 % (39-53); WHITE BLOOD COUNT 10.5 K/uL (4.1-10.2)
[2017-08-11 22:56] LABS: ALBUMIN 3.7 g/dL (3.2-4.8); CHLORIDE 105 mEq/L (99-109); POTASSIUM 3.7 mEq/L (3.7-5.4); SODIUM 142 mEq/L (136-147)
[2017-08-11 22:58] LABS: GLUCOSE 94 mg/dL (70-99)
[2017-08-11 22:59] LABS: TOTAL PROTEIN 6.6 g/dL (6.4-8.3)
[2017-08-11 23:00] LABS: TOTAL BILIRUBIN 0.3 mg/dL (0.0-1.0)
[2017-08-11 23:01] LABS: SERUM ETHYL ALCOHOL < 10 mg/dL
[2017-08-11 23:02] LABS: ALKALINE PHOSPHATASE 147 IU/L (3-129); GFR ESTIMATE (CALCULATED) > 59 mL/min/ (58.99-99999)
[2017-08-11 23:03] LABS: UREA NITROGEN (BUN) 14 mg/dL (9-23)
[2017-08-11 23:04] LABS: AST (GOT) 21 IU/L (2-34)
[2017-08-11 23:05] LABS: ALT (GPT) 17 IU/L (3-49); LIPASE 41 U/L (1.0-51.0); TROP-I INTERPRETATION NEGATIVE; TROPONIN-I < 0.01 ng/mL (0.0-0.30)
[2017-08-12 00:29] LABS: TROP-I INTERPRETATION NEGATIVE; TROPONIN-I 0.01 ng/mL (0.0-0.30)
[2017-08-12 02:12] VITALS: BP 129/68
== END 2017-08-12 02:14 | disposition home or self-care (01) ==
LOC: EME → EDBD 21:54 → EME 08-12 02:14
PROVIDERS: Emergency Medicine
DX: R07.89 Other chest pain (principal); R00.2 Palpitations; I10 Essential (primary) hypertension; Z91.14 Patient's other noncompliance with medication regimen; Z86.59 Personal history of other mental and behavioral disorders; Z87.81 Personal history of (healed) traumatic fracture; I45.10 Unspecified right bundle-branch block; R94.31 Abnormal electrocardiogram [ECG] [EKG]; I50.9 Heart failure, unspecified; J45.909 Unspecified asthma, uncomplicated; F17.200 Nicotine dependence, unspecified, uncomplicated; Z96.652 Presence of left artificial knee joint; Z87.19 Personal history of other diseases of the digestive system; Z90.49 Acquired absence of other specified parts of digestive tract; Z88.0 Allergy status to penicillin
CPT/HCPCS: 71045; 80053; 82140; 83690; 84484; 85027; 93005; 99281; 99285; G0480

== ENCOUNTER 2017-08-12 08:42 | Emergency (ER) | payer OTHER ==
[~2017-08-12] VITALS: Ht 175.3 cm; Wt 70.0 kg
[2017-08-12 12:14] VITALS: BP 181/95
== END 2017-08-12 12:14 | disposition home or self-care (01) ==
LOC: EME 08:42
DX: R68.83 Chills (without fever) (principal); X31.XXXA Exposure to excessive natural cold, initial encounter; Z59.0 Homelessness; Z88.0 Allergy status to penicillin
CPT/HCPCS: 99281; 99283

== ENCOUNTER 2017-08-14 13:20 | Emergency (ER) | payer OTHER ==
[~2017-08-14] VITALS: Ht 175.3 cm; Wt 91.1 kg
[2017-08-14 13:50] LABS: HEMATOCRIT 41.7 % (38.0-50.0); HEMOGLOBIN 13.6 G/DL (12.5-16.6); MCH 27.7 PG (29.0-34.0); MCHC 32.6 G/DL (30.0-36.0); MCV 84.9 FL (86-99); RBC DIS.WIDTH-CV 15.7 % (11.8-14.6); RBC DIS.WIDTH-SD 48.2 % (39-53); RED BLOOD COUNT 4.91 M/uL (4.00-5.50)
[2017-08-14 14:30] LABS: CHLORIDE 103 mEq/L (99-109); POTASSIUM 4.2 mEq/L (3.7-5.4); SODIUM 140 mEq/L (136-147)
[2017-08-14 14:32] LABS: GLUCOSE 90 mg/dL (70-99)
[2017-08-14 14:35] LABS: CREATININE 0.9 mg/dL (0.6-1.3); GFR ESTIMATE (CALCULATED) > 59 mL/min/ (58.99-99999)
[2017-08-14 14:36] LABS: UREA NITROGEN (BUN) 12 mg/dL (9-23)
[2017-08-14 14:43] LABS: TROP-I INTERPRETATION NEGATIVE; TROPONIN-I 0.02 ng/mL (0.0-0.30)
[2017-08-14 14:49] LABS: PLAT.SUFFICIENCY ADEQUATE; PLATELET COUNT 249 K/uL (156-360)
[2017-08-14 17:17] LABS: TROP-I INTERPRETATION NEGATIVE; TROPONIN-I < 0.01 ng/mL (0.0-0.30)
[2017-08-14] MEDS ORDERED: PROAIR HFA8.5 GM IH (17:58)
[2017-08-14 18:51] VITALS: BP 139/84
== END 2017-08-14 18:52 | disposition home or self-care (01) ==
LOC: EME 13:20
PROVIDERS: Emergency Medicine
DX: J44.1 Chronic obstructive pulmonary disease with (acute) exacerbation (principal); Z59.0 Homelessness; I45.10 Unspecified right bundle-branch block; R94.31 Abnormal electrocardiogram [ECG] [EKG]; R91.8 Other nonspecific abnormal finding of lung field; I10 Essential (primary) hypertension; F17.200 Nicotine dependence, unspecified, uncomplicated; Z96.652 Presence of left artificial knee joint; Z90.49 Acquired absence of other specified parts of digestive tract; Z88.0 Allergy status to penicillin
CPT/HCPCS: 71046; 80048; 84484; 85027; 93005; 94640; 99281; 99284

== ENCOUNTER 2017-08-15 05:38 | Emergency (ER) | payer OTHER ==
[~2017-08-15] VITALS: Ht 175.3 cm; Wt 89.5 kg
[~2017-08-15 05:38] MED LIST changes: +PROAIR HFA8.5 GM IH
[2017-08-15 06:48] LABS: BASOPHIL (%) 0.6 % (0-1); BASOPHIL COUNT 0.1 K/uL (0-0.1); EOSINOPHIL COUNT 0.7 K/uL (0-0.3); HEMATOCRIT 40.3 % (38.0-50.0); IMMATURE GRANULOCYTE (%) 0.3 % (0.0-0.7); LYMPHOCYTE (%) 25.2 % (15-42); LYMPHOCYTE COUNT 2.9 K/uL (1.0-2.8); MCH 27.4 PG (29.0-34.0); MCHC 32.3 G/DL (30.0-36.0); MCV 84.8 FL (86-99); MONOCYTE (%) 12.2 % (3-12); MONOCYTE COUNT 1.4 K/uL (0-0.8); NEUTROPHIL (%) 55.7 % (45-76); NEUTROPHIL COUNT 6.3 K/uL (1.8-6.4); PLATELET COUNT 305 K/uL (156-360); RBC DIS.WIDTH-CV 15.6 % (11.8-14.6); RBC DIS.WIDTH-SD 48.6 % (39-53); RED BLOOD COUNT 4.75 M/uL (4.00-5.50); WHITE BLOOD COUNT 11.3 K/uL (4.1-10.2)
[2017-08-15 07:12] LABS: CHLORIDE 104 MEQ/L (99-109); POTASSIUM 3.9 MEQ/L (3.7-5.4); SODIUM 139 MEQ/L (136-147)
[2017-08-15 07:17] LABS: GFR ESTIMATE (CALCULATED) > 59 mL/min/ (58.99-99999); GLUCOSE 91 mg/dL (70-99); UREA NITROGEN (BUN) 14 mg/dL (9-23)
[2017-08-15 07:22] LABS: TROP-I INTERPRETATION NEGATIVE; TROPONIN-I < 0.01 ng/mL (0.0-0.30)
[2017-08-15 09:16] LABS: TROP-I INTERPRETATION NEGATIVE; TROPONIN-I < 0.01 ng/mL (0.0-0.30)
[2017-08-15 10:03] VITALS: BP 143/74
== END 2017-08-15 10:04 | disposition home or self-care (01) ==
LOC: EME → EDBD 05:38 → EME 05:38
PROVIDERS: Emergency Medicine
DX: R07.89 Other chest pain (principal); I10 Essential (primary) hypertension; F17.200 Nicotine dependence, unspecified, uncomplicated; J45.909 Unspecified asthma, uncomplicated; Z96.652 Presence of left artificial knee joint; Z88.0 Allergy status to penicillin
CPT/HCPCS: 71045; 80048; 84484; 85025; 93005; 94640; 99281; 99284

== ENCOUNTER 2017-08-15 15:10 | Emergency (ER) | payer OTHER ==
[~2017-08-15] VITALS: Ht 175.3 cm; Wt 89.9 kg
[2017-08-15 16:34] VITALS: BP 172/90
== END 2017-08-15 16:54 | disposition home or self-care (01) ==
LOC: EME 15:10
DX: Z00.00 Encounter for general adult medical examination without abnormal findings (principal); Z59.0 Homelessness; F17.200 Nicotine dependence, unspecified, uncomplicated; J45.909 Unspecified asthma, uncomplicated; I11.0 Hypertensive heart disease with heart failure; I50.9 Heart failure, unspecified; Z96.652 Presence of left artificial knee joint; Z88.0 Allergy status to penicillin
CPT/HCPCS: 99281; 99284

== ENCOUNTER 2017-08-16 10:49 | Emergency (ER) | payer OTHER ==
[~2017-08-16] VITALS: Ht 175.3 cm; Wt 84.1 kg
[2017-08-16 11:22] LABS: HEMATOCRIT 42.4 % (38.0-50.0); HEMOGLOBIN 13.7 G/DL (12.5-16.6); MCH 27.6 PG (29.0-34.0); MCHC 32.3 G/DL (30.0-36.0); MCV 85.3 FL (86-99); RBC DIS.WIDTH-CV 15.8 % (11.8-14.6); RBC DIS.WIDTH-SD 49.1 % (39-53); RED BLOOD COUNT 4.97 M/uL (4.00-5.50); WHITE BLOOD COUNT 9.8 K/uL (4.1-10.2)
[2017-08-16 11:37] LABS: ALBUMIN 3.8 g/dL (3.2-4.8); CHLORIDE 107 mEq/L (99-109); POTASSIUM 4.4 mEq/L (3.7-5.4); SODIUM 142 mEq/L (136-147)
[2017-08-16 11:39] LABS: GLUCOSE 95 mg/dL (70-99); TOTAL PROTEIN 6.9 g/dL (6.4-8.3)
[2017-08-16 11:42] LABS: SERUM ETHYL ALCOHOL < 10 mg/dL
[2017-08-16 11:43] LABS: ALKALINE PHOSPHATASE 153 IU/L (3-129); GFR ESTIMATE (CALCULATED) > 59 mL/min/ (58.99-99999); TOTAL BILIRUBIN 0.6 mg/dL (0.0-1.0)
[2017-08-16 11:44] LABS: UREA NITROGEN (BUN) 14 mg/dL (9-23)
[2017-08-16 11:45] LABS: AST (GOT) 19 IU/L (2-34)
[2017-08-16 11:46] LABS: ALT (GPT) 15 IU/L (3-49)
[2017-08-16 11:51] LABS: TROP-I INTERPRETATION NEGATIVE; TROPONIN-I < 0.01 ng/mL (0.0-0.30)
[2017-08-16 12:07] LABS: PLAT.SUFFICIENCY ADEQUATE; PLATELET COUNT 307 K/uL (156-360)
[2017-08-16 15:02] VITALS: BP 136/74
== END 2017-08-16 15:02 | disposition home or self-care (01) ==
LOC: EME 10:49
PROVIDERS: Emergency Medicine
DX: F10.10 Alcohol abuse, uncomplicated (principal); R07.9 Chest pain, unspecified; J45.909 Unspecified asthma, uncomplicated; I10 Essential (primary) hypertension; Z59.0 Homelessness; F17.200 Nicotine dependence, unspecified, uncomplicated; Z96.652 Presence of left artificial knee joint; Z88.0 Allergy status to penicillin
CPT/HCPCS: 80053; 81003; 84484; 85027; 93005; 99281; 99284; G0480

== ENCOUNTER 2017-08-17 08:56 | Emergency (ER) | payer OTHER ==
[~2017-08-17] VITALS: Ht 175.3 cm; Wt 87.9 kg
[2017-08-17 09:01] VITALS: BP 170/76
== END 2017-08-17 11:27 | disposition home or self-care (01) ==
LOC: EME 08:56
DX: R60.0 Localized edema (principal); Z59.0 Homelessness; R15.9 Full incontinence of feces; Z88.0 Allergy status to penicillin
CPT/HCPCS: 99281; 99284

== ENCOUNTER 2017-08-19 16:25 | Emergency (ER) | payer OTHER ==
[~2017-08-19] VITALS: Ht 175.3 cm; Wt 84.0 kg
[2017-08-19 18:20] VITALS: BP 159/78
== END 2017-08-19 18:21 | disposition home or self-care (01) ==
LOC: EME 16:25
DX: R07.89 Other chest pain (principal); G89.29 Other chronic pain; J45.909 Unspecified asthma, uncomplicated; I10 Essential (primary) hypertension; Z59.0 Homelessness; F17.200 Nicotine dependence, unspecified, uncomplicated; Z96.652 Presence of left artificial knee joint; Z88.0 Allergy status to penicillin
CPT/HCPCS: 93005; 99281; 99284

== ENCOUNTER 2017-08-22 23:05 | Emergency (ER) | payer OTHER ==
[~2017-08-22] VITALS: Ht 175.3 cm; Wt 92.4 kg
[2017-08-22 23:25] LABS: HEMATOCRIT 40.4 % (38.0-50.0); HEMOGLOBIN 13.2 G/DL (12.5-16.6); MCH 27.7 PG (29.0-34.0); MCHC 32.7 G/DL (30.0-36.0); MCV 84.7 FL (86-99); PLATELET COUNT 289 K/uL (156-360); RBC DIS.WIDTH-CV 15.7 % (11.8-14.6); RBC DIS.WIDTH-SD 48.4 % (39-53); RED BLOOD COUNT 4.77 M/uL (4.00-5.50); WHITE BLOOD COUNT 11.3 K/uL (4.1-10.2)
[2017-08-22 23:34] LABS: CHLORIDE 108 mEq/L (99-109); POTASSIUM 4.1 mEq/L (3.7-5.4); SODIUM 138 mEq/L (136-147)
[2017-08-22 23:36] LABS: GLUCOSE 95 mg/dL (70-99)
[2017-08-22 23:40] LABS: GFR ESTIMATE (CALCULATED) > 59 mL/min/ (58.99-99999)
[2017-08-22 23:41] LABS: UREA NITROGEN (BUN) 17 mg/dL (9-23)
[2017-08-22 23:47] LABS: TROP-I INTERPRETATION NEGATIVE; TROPONIN-I < 0.01 ng/mL (0.0-0.30)
[2017-08-23 00:53] VITALS: BP 184/90
== END 2017-08-23 00:53 | disposition home or self-care (01) ==
LOC: EME 23:05
PROVIDERS: Emergency Medicine
DX: R07.89 Other chest pain (principal); F10.129 Alcohol abuse with intoxication, unspecified; Y90.9 Presence of alcohol in blood, level not specified; F17.200 Nicotine dependence, unspecified, uncomplicated; I11.0 Hypertensive heart disease with heart failure; I50.9 Heart failure, unspecified; J45.909 Unspecified asthma, uncomplicated; Z59.0 Homelessness; Z96.652 Presence of left artificial knee joint; Z88.0 Allergy status to penicillin
CPT/HCPCS: 71046; 80048; 83880; 84484; 85027; 93005; 99281; 99284

== ENCOUNTER 2017-08-24 06:28 | Emergency (ER) | payer OTHER ==
[~2017-08-24] VITALS: Ht 175.3 cm; Wt 84.2 kg
[2017-08-24 11:01] VITALS: BP 188/92
== END 2017-08-24 11:02 | disposition home or self-care (01) ==
LOC: EME 06:28
DX: S80.02XA Contusion of left knee, initial encounter (principal); W01.0XXA Fall on same level from slipping, tripping and stumbling without subsequent striking against object, initial encounter; Z59.0 Homelessness; Z88.0 Allergy status to penicillin
CPT/HCPCS: 73564; 99281; 99284

== ENCOUNTER 2017-08-25 10:57 | Emergency (ER) | payer OTHER ==
[~2017-08-25] VITALS: Ht 175.3 cm; Wt 87.7 kg
[2017-08-25 13:24] VITALS: BP 145/73
== END 2017-08-25 13:24 | disposition home or self-care (01) ==
LOC: EME 10:57
DX: S70.01XA Contusion of right hip, initial encounter (principal); W18.30XA Fall on same level, unspecified, initial encounter; J45.909 Unspecified asthma, uncomplicated; F17.200 Nicotine dependence, unspecified, uncomplicated; Z59.0 Homelessness; Z96.652 Presence of left artificial knee joint; Z86.79 Personal history of other diseases of the circulatory system; Z90.49 Acquired absence of other specified parts of digestive tract; Z88.0 Allergy status to penicillin
CPT/HCPCS: 73552; 99281; 99284

== ENCOUNTER 2017-08-28 01:42 | Emergency (ER) | payer OTHER ==
[~2017-08-28] VITALS: Ht 175.3 cm; Wt 84.0 kg
[2017-08-28 05:03] VITALS: BP 169/90
== END 2017-08-28 05:09 | disposition home or self-care (01) ==
LOC: EME 01:42
DX: S86.892A Other injury of other muscle(s) and tendon(s) at lower leg level, left leg, initial encounter (principal); S86.891A Other injury of other muscle(s) and tendon(s) at lower leg level, right leg, initial encounter; I10 Essential (primary) hypertension; F17.200 Nicotine dependence, unspecified, uncomplicated; Z59.0 Homelessness; Z88.0 Allergy status to penicillin
CPT/HCPCS: 99281; 99284

== ENCOUNTER 2017-08-28 22:59 | Emergency (ER) | payer OTHER ==
[~2017-08-28] VITALS: Ht 175.3 cm; Wt 91.1 kg
[2017-08-29 04:20] VITALS: BP 191/91
== END 2017-08-29 04:21 | disposition home or self-care (01) ==
LOC: EME 22:59
DX: M25.562 Pain in left knee (principal); G89.29 Other chronic pain; F10.10 Alcohol abuse, uncomplicated; Z59.0 Homelessness; I10 Essential (primary) hypertension; I50.9 Heart failure, unspecified; J45.909 Unspecified asthma, uncomplicated; F17.200 Nicotine dependence, unspecified, uncomplicated; Z87.19 Personal history of other diseases of the digestive system; Z90.49 Acquired absence of other specified parts of digestive tract; Z96.652 Presence of left artificial knee joint; Z88.0 Allergy status to penicillin
CPT/HCPCS: 99281; 99283

== ENCOUNTER 2017-08-29 12:10 | Emergency (ER) | payer OTHER ==
[~2017-08-29] VITALS: Ht 175.3 cm; Wt 89.7 kg
[2017-08-29 16:02] VITALS: BP 164/91
== END 2017-08-29 16:03 | disposition home or self-care (01) ==
LOC: EME 12:10
DX: M25.562 Pain in left knee (principal); R40.0 Somnolence; I10 Essential (primary) hypertension; F17.200 Nicotine dependence, unspecified, uncomplicated; Z91.81 History of falling; Z59.0 Homelessness; Z88.0 Allergy status to penicillin
CPT/HCPCS: 70450; 73564; 99281; 99283

== ENCOUNTER 2017-08-31 01:02 | Emergency (ER) | payer OTHER ==
[~2017-08-31] VITALS: Ht 175.3 cm; Wt 81.8 kg
[2017-08-31] MEDS ORDERED: MOTRIN400 MG PO (02:16)
[2017-08-31 02:37] VITALS: BP 174/85
== END 2017-08-31 02:37 | disposition home or self-care (01) ==
LOC: EME 01:02
DX: M19.072 Primary osteoarthritis, left ankle and foot (principal); Z88.0 Allergy status to penicillin

== ENCOUNTER 2017-09-01 22:00 | Emergency (ER) | payer OTHER ==
[~2017-09-01] VITALS: Ht 175.3 cm; Wt 91.4 kg
[~2017-09-01 22:00] MED LIST changes: +MOTRIN400 MG PO
[2017-09-02 02:06] VITALS: BP 139/61
== END 2017-09-02 02:07 | disposition home or self-care (01) ==
LOC: EME 22:00
DX: M79.89 Other specified soft tissue disorders (principal); M79.662 Pain in left lower leg; Z96.652 Presence of left artificial knee joint; J45.909 Unspecified asthma, uncomplicated; I10 Essential (primary) hypertension; F17.200 Nicotine dependence, unspecified, uncomplicated; Z88.0 Allergy status to penicillin
CPT/HCPCS: 93971; 99281; 99284

== ENCOUNTER 2017-09-03 00:14 | Emergency (ER) | payer OTHER ==
[~2017-09-03] VITALS: Ht 175.3 cm; Wt 84.1 kg
[2017-09-03 01:44] VITALS: BP 193/94
== END 2017-09-03 01:44 | disposition home or self-care (01) ==
LOC: EME 00:14
DX: R22.42 Localized swelling, mass and lump, left lower limb (principal); F17.200 Nicotine dependence, unspecified, uncomplicated; Z88.0 Allergy status to penicillin
CPT/HCPCS: 99281; 99284

== ENCOUNTER 2017-09-03 15:11 | Emergency (ER) | payer OTHER ==
[~2017-09-03] VITALS: Ht 175.3 cm; Wt 84.0 kg
[2017-09-03 17:27] VITALS: BP 142/88
== END 2017-09-03 17:28 | disposition home or self-care (01) ==
LOC: EME 15:11
DX: M79.662 Pain in left lower leg (principal); G89.29 Other chronic pain; J45.909 Unspecified asthma, uncomplicated; I10 Essential (primary) hypertension; Z88.0 Allergy status to penicillin; F17.200 Nicotine dependence, unspecified, uncomplicated
CPT/HCPCS: 99281; 99284

== ENCOUNTER 2017-09-04 12:09 | Emergency (ER) | payer OTHER ==
[~2017-09-04] VITALS: Ht 175.3 cm; Wt 84.1 kg
[2017-09-04 12:23] VITALS: BP 159/124
== END 2017-09-04 15:09 | disposition home or self-care (01) ==
LOC: EME 12:09
DX: S90.32XA Contusion of left foot, initial encounter (principal); W10.9XXA Fall (on) (from) unspecified stairs and steps, initial encounter; F17.200 Nicotine dependence, unspecified, uncomplicated; I11.0 Hypertensive heart disease with heart failure; I50.9 Heart failure, unspecified; J45.909 Unspecified asthma, uncomplicated; Z96.652 Presence of left artificial knee joint; Z88.0 Allergy status to penicillin
CPT/HCPCS: 73630; 99281; 99285

== ENCOUNTER 2017-09-04 16:28 | Emergency (ER) | payer OTHER ==
[~2017-09-04] VITALS: Ht 175.3 cm; Wt 84.1 kg
[2017-09-04 19:31] VITALS: BP 144/84
== END 2017-09-04 19:33 | disposition home or self-care (01) ==
LOC: EME 16:28
DX: S90.32XA Contusion of left foot, initial encounter (principal); W10.9XXA Fall (on) (from) unspecified stairs and steps, initial encounter; Z88.0 Allergy status to penicillin
CPT/HCPCS: 99281; 99284

== ENCOUNTER 2017-09-05 23:08 | Emergency (ER) | payer OTHER ==
[~2017-09-05] VITALS: Ht 175.3 cm; Wt 84.1 kg
[2017-09-06 03:06] VITALS: BP 161/87
== END 2017-09-06 03:07 | disposition home or self-care (01) ==
LOC: EME 23:08
DX: M79.604 Pain in right leg (principal); M79.605 Pain in left leg; G89.29 Other chronic pain; Z88.0 Allergy status to penicillin; F17.200 Nicotine dependence, unspecified, uncomplicated
CPT/HCPCS: 99281; 99283

== ENCOUNTER 2017-09-08 10:10 | Emergency (ER) | payer OTHER ==
[~2017-09-08] VITALS: Ht 175.3 cm; Wt 84.0 kg
[2017-09-08 12:16] VITALS: BP 174/81
== END 2017-09-08 12:16 | disposition home or self-care (01) ==
LOC: EME 10:10
DX: G89.29 Other chronic pain (principal); M79.605 Pain in left leg; Z59.0 Homelessness; I11.0 Hypertensive heart disease with heart failure; I50.9 Heart failure, unspecified; J45.909 Unspecified asthma, uncomplicated; Z96.652 Presence of left artificial knee joint; Z88.0 Allergy status to penicillin; F17.200 Nicotine dependence, unspecified, uncomplicated
CPT/HCPCS: 99281; 99284

== ENCOUNTER 2017-09-08 19:05 | Emergency (ER) | payer OTHER ==
[~2017-09-08] VITALS: Ht 175.3 cm; Wt 88.3 kg
[2017-09-08 19:40] LABS: BASOPHIL (%) 0.3 % (0-1); EOSINOPHIL (%) 5.1 % (0-5); EOSINOPHIL COUNT 0.5 K/uL (0-0.3); HEMATOCRIT 40.5 % (38.0-50.0); HEMOGLOBIN 13.1 G/DL (12.5-16.6); IMMATURE GRANULOCYTE (%) 0.3 % (0.0-0.7); LYMPHOCYTE (%) 24.7 % (15-42); LYMPHOCYTE COUNT 2.3 K/uL (1.0-2.8); MCH 27.6 PG (29.0-34.0); MCHC 32.3 G/DL (30.0-36.0); MCV 85.4 FL (86-99); MONOCYTE (%) 12.7 % (3-12); MONOCYTE COUNT 1.2 K/uL (0-0.8); NEUTROPHIL (%) 56.9 % (45-76); NEUTROPHIL COUNT 5.4 K/uL (1.8-6.4); PLATELET COUNT 249 K/uL (156-360); RBC DIS.WIDTH-CV 15.9 % (11.8-14.6); RBC DIS.WIDTH-SD 50.2 % (39-53); RED BLOOD COUNT 4.74 M/uL (4.00-5.50); WHITE BLOOD COUNT 9.5 K/uL (4.1-10.2)
[2017-09-08 19:50] LABS: CHLORIDE 107 mEq/L (99-109); POTASSIUM 3.6 mEq/L (3.7-5.4); SODIUM 139 mEq/L (136-147)
[2017-09-08 19:51] LABS: GLUCOSE 93 mg/dL (70-99)
[2017-09-08 19:55] LABS: GFR ESTIMATE (CALCULATED) > 59 mL/min/ (58.99-99999)
[2017-09-08 19:56] LABS: UREA NITROGEN (BUN) 14 mg/dL (9-23)
[2017-09-08 20:01] LABS: TROP-I INTERPRETATION NEGATIVE; TROPONIN-I < 0.01 ng/mL (0.0-0.30)
[2017-09-08 23:28] VITALS: BP 185/78
== END 2017-09-08 23:40 | disposition home or self-care (01) ==
LOC: EME → EDBD 19:05 → EME 23:40
PROVIDERS: Emergency Medicine
DX: R06.02 Shortness of breath (principal); R60.0 Localized edema; I45.10 Unspecified right bundle-branch block; R94.31 Abnormal electrocardiogram [ECG] [EKG]; I10 Essential (primary) hypertension; J45.909 Unspecified asthma, uncomplicated; F17.200 Nicotine dependence, unspecified, uncomplicated; Z59.0 Homelessness; Z86.79 Personal history of other diseases of the circulatory system; Z96.652 Presence of left artificial knee joint; Z88.0 Allergy status to penicillin
CPT/HCPCS: 71046; 80048; 83880; 84484; 85025; 93005; 93971; 99281; 99285; J7644

== ENCOUNTER 2017-09-09 17:45 | Emergency (ER) | payer OTHER ==
[~2017-09-09] VITALS: Ht 177.8 cm; Wt 85.1 kg
[2017-09-09 20:15] VITALS: BP 160/81
[2017-09-10] MEDS ORDERED: MOBIC7.5 MG PO (23:28)
== END 2017-09-09 20:33 | disposition home or self-care (01) ==
LOC: EME 17:45
DX: G89.29 Other chronic pain (principal); M79.605 Pain in left leg; Z88.0 Allergy status to penicillin
CPT/HCPCS: 99281; 99282

== ENCOUNTER 2017-09-10 20:48 | Emergency (ER) | payer OTHER ==
[~2017-09-10] VITALS: Ht 175.3 cm; Wt 84.0 kg
[2017-09-10] MEDS ORDERED: MOBIC7.5 MG PO (23:28)
[2017-09-11 00:23] VITALS: BP 147/55
[2017-09-11] MEDS ORDERED: ZITHROMAX250 MG PO (23:34)
[2017-09-11] MEDS ORDERED: PREDNISONE20 MG PO (23:34)
[2017-09-11] MEDS ORDERED: VENTOLIN HFA18 GM IH (23:34)
== END 2017-09-11 00:24 | disposition home or self-care (01) ==
LOC: EME 20:48
DX: M25.562 Pain in left knee (principal); G89.29 Other chronic pain; I10 Essential (primary) hypertension; Z91.14 Patient's other noncompliance with medication regimen; J45.909 Unspecified asthma, uncomplicated; Z88.0 Allergy status to penicillin; Z87.891 Personal history of nicotine dependence; W18.30XA Fall on same level, unspecified, initial encounter
CPT/HCPCS: 99281; 99284

== ENCOUNTER 2017-09-11 18:36 | Emergency (ER) | payer OTHER ==
[~2017-09-11] VITALS: Ht 177.8 cm; Wt 84.1 kg
[2017-09-11] MEDS ORDERED: ZITHROMAX250 MG PO (23:34)
[2017-09-11] MEDS ORDERED: PREDNISONE20 MG PO (23:34)
[2017-09-11] MEDS ORDERED: VENTOLIN HFA18 GM IH (23:34)
[2017-09-11 23:46] VITALS: BP 177/76
== END 2017-09-11 23:59 | disposition home or self-care (01) ==
LOC: EME 18:36
DX: J18.0 Bronchopneumonia, unspecified organism (principal); J45.909 Unspecified asthma, uncomplicated; Z87.891 Personal history of nicotine dependence; Z59.0 Homelessness; Z96.652 Presence of left artificial knee joint; Z88.0 Allergy status to penicillin
CPT/HCPCS: 71046; 93005; 94640; 99281; 99284; J7512

== ENCOUNTER 2017-09-14 09:04 | Emergency (ER) | payer OTHER ==
[~2017-09-14] VITALS: Ht 175.3 cm; Wt 89.9 kg
[~2017-09-14 09:04] MED LIST changes: +ZITHROMAX250 MG PO
[2017-09-14 09:07] VITALS: BP 195/177
== END 2017-09-14 10:12 | disposition home or self-care (01) ==
LOC: EME 09:04
DX: S70.01XA Contusion of right hip, initial encounter (principal); W01.0XXA Fall on same level from slipping, tripping and stumbling without subsequent striking against object, initial encounter; Y93.01 Activity, walking, marching and hiking; Y92.410 Unspecified street and highway as the place of occurrence of the external cause; F17.200 Nicotine dependence, unspecified, uncomplicated; Z91.81 History of falling; Z88.0 Allergy status to penicillin
CPT/HCPCS: 99281; 99284

== ENCOUNTER 2017-09-15 19:23 | Emergency (ER) | payer OTHER ==
[~2017-09-15] VITALS: Ht 172.7 cm; Wt 90.4 kg
[2017-09-15 20:40] LABS: CHLORIDE 108 MEQ/L (99-109); POTASSIUM 4.4 MEQ/L (3.7-5.4); SODIUM 141 MEQ/L (136-147)
[2017-09-15 20:45] LABS: CREATININE 1.2 MG/DL (0.6-1.3); GFR ESTIMATE (CALCULATED) > 59 mL/min/ (58.99-99999); GLUCOSE 103 mg/dL (70-99); UREA NITROGEN (BUN) 23 mg/dL (9-23)
[2017-09-15 20:48] LABS: HEMATOCRIT 38.4 % (38.0-50.0); HEMOGLOBIN 12.6 G/DL (12.5-16.6); MCH 27.9 PG (29.0-34.0); MCHC 32.8 G/DL (30.0-36.0); RBC DIS.WIDTH-CV 15.9 % (11.8-14.6); RBC DIS.WIDTH-SD 49.2 % (39-53); RED BLOOD COUNT 4.52 M/uL (4.00-5.50); WHITE BLOOD COUNT 10.8 K/uL (4.1-10.2)
[2017-09-15 20:50] LABS: TROP-I INTERPRETATION NEGATIVE; TROPONIN-I 0.02 ng/mL (0.0-0.30)
[2017-09-15 21:35] LABS: PLAT.SUFFICIENCY ADEQUATE; PLATELET COUNT 206 K/uL (156-360)
[2017-09-15 21:49] VITALS: BP 165/71
== END 2017-09-15 21:50 | disposition home or self-care (01) ==
LOC: EME 19:23
PROVIDERS: Emergency Medicine
DX: R07.89 Other chest pain (principal); F10.129 Alcohol abuse with intoxication, unspecified; Y90.9 Presence of alcohol in blood, level not specified; I10 Essential (primary) hypertension; I50.9 Heart failure, unspecified; J45.909 Unspecified asthma, uncomplicated; F17.200 Nicotine dependence, unspecified, uncomplicated; Z59.0 Homelessness; Z91.81 History of falling; Z87.19 Personal history of other diseases of the digestive system; Z88.0 Allergy status to penicillin
CPT/HCPCS: 71046; 80048; 84484; 85027; 93005; 99281; 99285

== ENCOUNTER 2017-09-16 21:10 | Emergency (ER) | payer OTHER ==
[~2017-09-16] VITALS: Ht 175.3 cm; Wt 84.0 kg
[2017-09-17 01:56] VITALS: BP 131/86
== END 2017-09-17 01:56 | disposition home or self-care (01) ==
LOC: EME 21:10
DX: M54.9 Dorsalgia, unspecified (principal); R10.9 Unspecified abdominal pain; I50.9 Heart failure, unspecified; I11.0 Hypertensive heart disease with heart failure; J45.909 Unspecified asthma, uncomplicated; F10.10 Alcohol abuse, uncomplicated; F17.200 Nicotine dependence, unspecified, uncomplicated; Z88.0 Allergy status to penicillin; Z59.0 Homelessness
CPT/HCPCS: 81003; 99281; 99283

== ENCOUNTER 2017-09-20 22:48 | Emergency (ER) | payer OTHER ==
[~2017-09-20] VITALS: Ht 175.3 cm; Wt 85.0 kg
[2017-09-20 23:59] LABS: HEMATOCRIT 39.8 % (38.0-50.0); HEMOGLOBIN 12.6 G/DL (12.5-16.6); MCH 27.3 PG (29.0-34.0); MCHC 31.7 G/DL (30.0-36.0); MCV 86.1 FL (86-99); RBC DIS.WIDTH-CV 15.9 % (11.8-14.6); RBC DIS.WIDTH-SD 50.3 % (39-53); RED BLOOD COUNT 4.62 M/uL (4.00-5.50); WHITE BLOOD COUNT 12.5 K/uL (4.1-10.2)
[2017-09-21 00:07] LABS: CHLORIDE 107 mEq/L (99-109); POTASSIUM 3.8 mEq/L (3.7-5.4); SODIUM 140 mEq/L (136-147)
[2017-09-21 00:08] LABS: GLUCOSE 98 mg/dL (70-99)
[2017-09-21 00:12] LABS: CREATININE 1.2 mg/dL (0.6-1.3); GFR ESTIMATE (CALCULATED) > 59 mL/min/ (58.99-99999)
[2017-09-21 00:13] LABS: UREA NITROGEN (BUN) 20 mg/dL (9-23)
[2017-09-21 00:20] LABS: TROP-I INTERPRETATION NEGATIVE; TROPONIN-I < 0.01 ng/mL (0.0-0.30)
[2017-09-21 01:07] LABS: PLAT.SUFFICIENCY ADEQUATE; PLATELET COUNT 287 K/uL (156-360)
[2017-09-21 04:06] LABS: TROP-I INTERPRETATION NEGATIVE; TROPONIN-I < 0.01 ng/mL (0.0-0.30)
[2017-09-21 04:52] VITALS: BP 189/86
== END 2017-09-21 04:54 | disposition home or self-care (01) ==
LOC: EME 22:48
PROVIDERS: Emergency Medicine
DX: J98.01 Acute bronchospasm (principal); R07.9 Chest pain, unspecified; Z59.0 Homelessness; I50.9 Heart failure, unspecified; I11.0 Hypertensive heart disease with heart failure; F10.10 Alcohol abuse, uncomplicated; Z88.0 Allergy status to penicillin; F17.200 Nicotine dependence, unspecified, uncomplicated
CPT/HCPCS: 71046; 80048; 84484; 85027; 93005; 94640; 99281; 99284

== ENCOUNTER 2017-09-25 21:11 | Emergency (ER) | payer OTHER ==
[~2017-09-25] VITALS: Ht 175.3 cm; Wt 74.0 kg
[2017-09-25 21:38] VITALS: BP 172/89
== END 2017-09-25 21:40 | disposition home or self-care (01) ==
LOC: EME → EDBD 21:11 → EME 21:40
DX: M79.1 Myalgia (principal); Z59.0 Homelessness; J45.909 Unspecified asthma, uncomplicated; I11.0 Hypertensive heart disease with heart failure; I50.9 Heart failure, unspecified; F17.200 Nicotine dependence, unspecified, uncomplicated; Z88.0 Allergy status to penicillin
CPT/HCPCS: 99281; 99284

== ENCOUNTER 2017-10-06 16:28 | Emergency (ER) | payer OTHER ==
[~2017-10-06] VITALS: Ht 175.3 cm; Wt 84.0 kg
[2017-10-06 17:41] LABS: HEMATOCRIT 44.4 % (38.0-50.0); HEMOGLOBIN 14.2 G/DL (12.5-16.6); MCH 27.2 PG (29.0-34.0); MCV 84.9 FL (86-99); RBC DIS.WIDTH-CV 15.8 % (11.8-14.6); RBC DIS.WIDTH-SD 49.2 % (39-53); RED BLOOD COUNT 5.23 M/uL (4.00-5.50); WHITE BLOOD COUNT 10.3 K/uL (4.1-10.2)
[2017-10-06 17:55] LABS: CHLORIDE 104 mEq/L (99-109); POTASSIUM 4.2 mEq/L (3.7-5.4); SODIUM 138 mEq/L (136-147)
[2017-10-06 17:57] LABS: GLUCOSE 92 mg/dL (70-99)
[2017-10-06 18:01] LABS: CREATININE 1.2 mg/dL (0.6-1.3); GFR ESTIMATE (CALCULATED) > 59 mL/min/ (58.99-99999)
[2017-10-06 18:02] LABS: UREA NITROGEN (BUN) 10 mg/dL (9-23)
[2017-10-06 18:06] LABS: TROP-I INTERPRETATION NEGATIVE; TROPONIN-I < 0.01 ng/mL (0.0-0.30)
[2017-10-06 18:13] LABS: SERUM ETHYL ALCOHOL < 10 mg/dL
[2017-10-06 18:27] LABS: PLAT.SUFFICIENCY ADEQUATE; PLATELET COUNT 242 K/uL (156-360)
[2017-10-06 18:34] LABS: APPEARANCE CLEAR ((CLEAR)); BILIRUBIN NEGATIVE; BLOOD NEGATIVE; COLOR YELLOW ((YELLOW)); GLUCOSE (STRIP) NEGATIVE; KETONES NEGATIVE; LEUKOCYTES TRACE; NITRITE NEGATIVE; PROTEIN (STRIP) >=500; SPECIFIC GRAVITY 1.017 (1.000-1.030)
[2017-10-06 18:38] LABS: BACTERIA NONE SEEN /HPF; EPITHELIAL CELLS RARE /HPF; HYALINE CASTS 0-5 /LPF; MUCUS TRACE /LPF; RED BLOOD CELLS 0-5 /HPF (0-5); WHITE BLOOD CELLS 0-5 /HPF (0-5)
[2017-10-06 18:42] LABS: AMPHETAMINE NEGATIVE (500 ng/mL); BARBITURATES NEGATIVE (200 ng/mL); BENZODIAZEPINES NEGATIVE (150 ng/mL); BUPRENORPHINE NEGATIVE (10 ng/mL); COCAINE PRESUMPTIVE POSITIVE (150 ng/mL); METHADONE NEGATIVE (200 ng/mL); METHAMPHETAMINE NEGATIVE (500 ng/mL); OPIATES (MORPHINE) NEGATIVE (100 ng/mL); OXYCODONE NEGATIVE (100 ng/mL); PHENCYCLIDINE NEGATIVE (25 ng/mL); PROPOXYPHENE NEGATIVE (300 ng/mL); THC CANNABINOIDS NEGATIVE (50 ng/mL); TRICYCLIC ANTIDEPRESSANTS NEGATIVE (300 ng/mL)
[2017-10-06 20:40] LABS: TROP-I INTERPRETATION NEGATIVE; TROPONIN-I < 0.01 ng/mL (0.0-0.30)
[2017-10-06 21:13] VITALS: BP 175/81
== END 2017-10-06 21:22 | disposition home or self-care (01) ==
LOC: EME 16:28
PROVIDERS: Family Medicine
DX: R07.9 Chest pain, unspecified (principal); I10 Essential (primary) hypertension; I45.10 Unspecified right bundle-branch block; J45.909 Unspecified asthma, uncomplicated; Z88.0 Allergy status to penicillin; F17.210 Nicotine dependence, cigarettes, uncomplicated; Z59.0 Homelessness
CPT/HCPCS: 71046; 80048; 81003; 83880; 84484; 84999; 85027; 93005; 94640; 99281; 99285; G0480

== ENCOUNTER 2017-10-09 19:07 | Emergency (ER) | payer OTHER ==
[~2017-10-09] VITALS: Ht 175.3 cm; Wt 84.0 kg
[2017-10-09] MEDS ORDERED: PROAIR HFA8.5 GM IH (21:01)
[2017-10-09] MEDS ORDERED: ZITHROMAX Z-PA250 MG PO (21:01)
[2017-10-09 21:19] VITALS: BP 175/86
== END 2017-10-09 21:20 | disposition home or self-care (01) ==
LOC: EME 19:07
DX: J20.9 Acute bronchitis, unspecified (principal); J45.909 Unspecified asthma, uncomplicated; I10 Essential (primary) hypertension; I50.9 Heart failure, unspecified; F17.200 Nicotine dependence, unspecified, uncomplicated; Z91.81 History of falling; Z59.0 Homelessness; Z88.0 Allergy status to penicillin
CPT/HCPCS: 71046; 99281; 99284; J8540; Q0169

== ENCOUNTER 2017-10-19 20:24 | Emergency (ER) | payer OTHER ==
[~2017-10-19] VITALS: Ht 175.3 cm; Wt 84.0 kg
[2017-10-19 21:58] VITALS: BP 147/83
== END 2017-10-19 21:59 | disposition home or self-care (01) ==
LOC: EME 20:24
DX: S80.02XA Contusion of left knee, initial encounter (principal); M17.12 Unilateral primary osteoarthritis, left knee; W01.0XXA Fall on same level from slipping, tripping and stumbling without subsequent striking against object, initial encounter; Y93.01 Activity, walking, marching and hiking; Z96.652 Presence of left artificial knee joint; Z88.0 Allergy status to penicillin
CPT/HCPCS: 73564; 99281; 99284

== ENCOUNTER 2017-10-21 17:00 | Emergency (ER) | payer OTHER ==
[~2017-10-21] VITALS: Ht 175.3 cm; Wt 84.0 kg
[2017-10-21 17:15] VITALS: BP 176/86
== END 2017-10-21 19:20 | disposition home or self-care (01) ==
LOC: RME 17:00 → EME 17:00 → RME 19:20
DX: M25.562 Pain in left knee (principal); W10.1XXA Fall (on)(from) sidewalk curb, initial encounter; Y93.01 Activity, walking, marching and hiking; R06.2 Wheezing; F17.200 Nicotine dependence, unspecified, uncomplicated; Z88.0 Allergy status to penicillin
CPT/HCPCS: 73564

== ENCOUNTER 2017-10-24 21:21 | Emergency (ER) | payer OTHER ==
[~2017-10-24] VITALS: Ht 182.9 cm; Wt 82.7 kg
[2017-10-24 22:26] VITALS: BP 188/95
== END 2017-10-24 22:48 | disposition home or self-care (01) ==
LOC: EME 21:21
DX: M25.562 Pain in left knee (principal); Z91.81 History of falling; Z59.0 Homelessness; I11.0 Hypertensive heart disease with heart failure; I50.9 Heart failure, unspecified; J45.909 Unspecified asthma, uncomplicated; F17.200 Nicotine dependence, unspecified, uncomplicated; Z88.0 Allergy status to penicillin
CPT/HCPCS: 99281; 99284

== ENCOUNTER 2017-10-26 15:20 | Emergency (ER) | payer OTHER ==
[~2017-10-26] VITALS: Ht 175.3 cm; Wt 88.0 kg
[2017-10-26 17:35] VITALS: BP 165/77
== END 2017-10-26 17:36 | disposition home or self-care (01) ==
LOC: EME 15:20
DX: R60.0 Localized edema (principal); M79.605 Pain in left leg; F19.10 Other psychoactive substance abuse, uncomplicated; I10 Essential (primary) hypertension; Z88.0 Allergy status to penicillin; Z59.0 Homelessness; F17.200 Nicotine dependence, unspecified, uncomplicated
CPT/HCPCS: 93971; 99281; 99283

== ENCOUNTER 2017-11-05 14:22 | Emergency (ER) | payer OTHER ==
[~2017-11-05] VITALS: Ht 175.3 cm; Wt 83.3 kg
[2017-11-05 15:54] VITALS: BP 175/83
== END 2017-11-05 16:03 | disposition home or self-care (01) ==
LOC: EME 14:22
DX: R11.0 Nausea (principal); T67.5XXA Heat exhaustion, unspecified, initial encounter; Z88.0 Allergy status to penicillin
CPT/HCPCS: 99281; 99284

== ENCOUNTER 2017-11-07 15:40 | Emergency (ER) | payer OTHER ==
[~2017-11-07] VITALS: Ht 180.3 cm; Wt 84.1 kg
[2017-11-07 17:17] VITALS: BP 191/101
== END 2017-11-07 17:18 | disposition home or self-care (01) ==
LOC: EME 15:40
DX: S80.00XA Contusion of unspecified knee, initial encounter (principal); R51 Headache; W18.30XA Fall on same level, unspecified, initial encounter; Y92.512 Supermarket, store or market as the place of occurrence of the external cause; F17.200 Nicotine dependence, unspecified, uncomplicated; Z88.0 Allergy status to penicillin
CPT/HCPCS: 99281; 99283

== ENCOUNTER 2017-11-09 19:17 | Emergency (ER) | payer OTHER ==
[~2017-11-09] VITALS: Ht 175.3 cm; Wt 84.0 kg
[2017-11-09 20:17] LABS: BASOPHIL (%) 0.4 % (0-1); BASOPHIL COUNT 0.1 K/uL (0-0.1); EOSINOPHIL (%) 3.7 % (0-5); EOSINOPHIL COUNT 0.4 K/uL (0-0.3); HEMATOCRIT 47.1 % (38.0-50.0); HEMOGLOBIN 15.5 G/DL (12.5-16.6); IMMATURE GRANULOCYTE (%) 0.5 % (0.0-0.7); LYMPHOCYTE (%) 22.5 % (15-42); LYMPHOCYTE COUNT 2.7 K/uL (1.0-2.8); MCH 27.3 PG (29.0-34.0); MCHC 32.9 G/DL (30.0-36.0); MCV 82.9 FL (86-99); MONOCYTE COUNT 1.2 K/uL (0-0.8); NEUTROPHIL (%) 62.9 % (45-76); NEUTROPHIL COUNT 7.4 K/uL (1.8-6.4); RBC DIS.WIDTH-CV 15.4 % (11.8-14.6); RBC DIS.WIDTH-SD 46.6 % (39-53); RED BLOOD COUNT 5.68 M/uL (4.00-5.50); WHITE BLOOD COUNT 11.8 K/uL (4.1-10.2)
[2017-11-09 20:51] LABS: CHLORIDE 105 mEq/L (99-109); POTASSIUM 3.9 mEq/L (3.7-5.4); SODIUM 142 mEq/L (136-147)
[2017-11-09 20:53] LABS: GLUCOSE 90 mg/dL (70-99)
[2017-11-09 20:56] LABS: CREATININE 0.9 mg/dL (0.6-1.3); GFR ESTIMATE (CALCULATED) > 59 mL/min/ (58.99-99999); SERUM ETHYL ALCOHOL < 10 mg/dL
[2017-11-09 20:57] LABS: UREA NITROGEN (BUN) 10 mg/dL (9-23)
[2017-11-09 21:03] LABS: PLAT.SUFFICIENCY ADEQUATE; PLATELET COUNT 235 K/uL (156-360)
[2017-11-09 21:08] LABS: AMPHETAMINE NEGATIVE (500 ng/mL); BARBITURATES NEGATIVE (200 ng/mL); BENZODIAZEPINES NEGATIVE (150 ng/mL); BUPRENORPHINE NEGATIVE (10 ng/mL); COCAINE NEGATIVE (150 ng/mL); METHADONE NEGATIVE (200 ng/mL); METHAMPHETAMINE NEGATIVE (500 ng/mL); OPIATES (MORPHINE) NEGATIVE (100 ng/mL); OXYCODONE NEGATIVE (100 ng/mL); PHENCYCLIDINE NEGATIVE (25 ng/mL); PROPOXYPHENE NEGATIVE (300 ng/mL); THC CANNABINOIDS NEGATIVE (50 ng/mL); TRICYCLIC ANTIDEPRESSANTS NEGATIVE (300 ng/mL)
[2017-11-09 21:15] VITALS: BP 214/116
== END 2017-11-09 21:16 | disposition home or self-care (01) ==
LOC: EME 19:17
PROVIDERS: Emergency Medicine
DX: M25.462 Effusion, left knee (principal); Z91.14 Patient's other noncompliance with medication regimen; I10 Essential (primary) hypertension; M25.562 Pain in left knee; G89.29 Other chronic pain; F17.200 Nicotine dependence, unspecified, uncomplicated
CPT/HCPCS: 80048; 85025; 99281; 99284; G0480

== ENCOUNTER 2017-11-11 18:59 | Emergency (ER) | payer OTHER ==
[~2017-11-11] VITALS: Ht 175.3 cm; Wt 85.6 kg
[2017-11-11 19:37] LABS: HEMATOCRIT 41.4 % (38.0-50.0); HEMOGLOBIN 13.7 G/DL (12.5-16.6); MCH 27.6 PG (29.0-34.0); MCHC 33.1 G/DL (30.0-36.0); MCV 83.3 FL (86-99); RBC DIS.WIDTH-CV 15.5 % (11.8-14.6); RBC DIS.WIDTH-SD 46.8 % (39-53); RED BLOOD COUNT 4.97 M/uL (4.00-5.50)
[2017-11-11 19:50] LABS: CHLORIDE 108 mEq/L (99-109); POTASSIUM 3.6 mEq/L (3.7-5.4); SODIUM 142 mEq/L (136-147)
[2017-11-11 19:51] LABS: GLUCOSE 103 mg/dL (70-99)
[2017-11-11 19:55] LABS: CREATININE 1.1 mg/dL (0.6-1.3); GFR ESTIMATE (CALCULATED) > 59 mL/min/ (58.99-99999)
[2017-11-11 19:56] LABS: UREA NITROGEN (BUN) 12 mg/dL (9-23)
[2017-11-11 20:27] LABS: HEMATOLOGY COMMENT 1 SN; PLAT.SUFFICIENCY ADEQUATE; PLATELET COUNT 248 K/uL (156-360)
[2017-11-11] MEDS ORDERED: PREDNISONE50 MG PO (20:33)
[2017-11-11 21:06] VITALS: BP 182/76
== END 2017-11-11 21:09 | disposition home or self-care (01) ==
LOC: EME → EDBD 18:59 → EDSEX 18:59 → EME 18:59
PROVIDERS: Emergency Medicine
DX: J44.1 Chronic obstructive pulmonary disease with (acute) exacerbation (principal); F17.200 Nicotine dependence, unspecified, uncomplicated; I11.0 Hypertensive heart disease with heart failure; I50.9 Heart failure, unspecified; E78.5 Hyperlipidemia, unspecified; Z88.0 Allergy status to penicillin
CPT/HCPCS: 71045; 80048; 84484; 85027; 94640; 99281; 99284; J7512

== ENCOUNTER 2017-11-14 15:46 | Emergency (ER) | payer OTHER ==
[~2017-11-14] VITALS: Ht 175.3 cm; Wt 84.0 kg
[~2017-11-14 15:46] MED LIST changes: +PREDNISONE50 MG PO
[2017-11-14 21:52] VITALS: BP 173/61
== END 2017-11-14 21:52 | disposition home or self-care (01) ==
LOC: EME 15:46 → RME 15:46
DX: S80.02XA Contusion of left knee, initial encounter (principal); M79.605 Pain in left leg; M79.89 Other specified soft tissue disorders; W18.30XA Fall on same level, unspecified, initial encounter; F17.200 Nicotine dependence, unspecified, uncomplicated; Z88.0 Allergy status to penicillin
CPT/HCPCS: 73564; 93971; 99281; 99284

== ENCOUNTER 2017-11-16 16:51 | Emergency (ER) | payer OTHER ==
[~2017-11-16] VITALS: Ht 175.3 cm; Wt 84.0 kg
[2017-11-16 17:15] VITALS: BP 146/88
[2017-11-16] MEDS ORDERED: MOTRIN600 MG PO (18:33)
== END 2017-11-16 18:45 | disposition home or self-care (01) ==
LOC: EME 16:51
DX: M25.562 Pain in left knee (principal); G89.29 Other chronic pain
CPT/HCPCS: 99281; 99282

== ENCOUNTER 2017-11-20 16:17 | Emergency (ER) | payer OTHER ==
[~2017-11-20] VITALS: Ht 185.4 cm; Wt 87.1 kg
[~2017-11-20 16:17] MED LIST changes: +MOTRIN600 MG PO
[2017-11-20 17:32] LABS: MCH 27.5 PG (29.0-34.0); MCHC 32.6 G/DL (30.0-36.0); MCV 84.3 FL (86-99); RBC DIS.WIDTH-CV 15.9 % (11.8-14.6); RBC DIS.WIDTH-SD 49.2 % (39-53); WHITE BLOOD COUNT 10.6 K/uL (4.1-10.2)
[2017-11-20 17:41] LABS: ALBUMIN 3.8 g/dL (3.2-4.8); CHLORIDE 108 mEq/L (99-109); SODIUM 140 mEq/L (136-147)
[2017-11-20 17:43] LABS: GLUCOSE 93 mg/dL (70-99); TOTAL PROTEIN 6.5 g/dL (6.4-8.3)
[2017-11-20 17:45] LABS: TOTAL BILIRUBIN 0.4 mg/dL (0.0-1.0)
[2017-11-20 17:47] LABS: ALKALINE PHOSPHATASE 136 IU/L (3-129); CREATININE 1.2 mg/dL (0.6-1.3); GFR ESTIMATE (CALCULATED) > 59 mL/min/ (58.99-99999)
[2017-11-20 17:48] LABS: AST (GOT) 15 IU/L (2-34); UREA NITROGEN (BUN) 11 mg/dL (9-23)
[2017-11-20 17:50] LABS: ALT (GPT) 11 IU/L (3-49)
[2017-11-20 17:52] LABS: TROP-I INTERPRETATION NEGATIVE; TROPONIN-I < 0.01 ng/mL (0.0-0.30)
[2017-11-20 18:20] LABS: PLATELET COUNT 262 K/uL (156-360)
[2017-11-20 19:59] LABS: TROP-I INTERPRETATION NEGATIVE; TROPONIN-I < 0.01 ng/mL (0.0-0.30)
[2017-11-20] MEDS ORDERED: ZITHROMAX Z-PA250 MG PO (20:37)
[2017-11-20] MEDS ORDERED: PREDNISONE10 M1 PO (20:37)
[2017-11-20] MEDS ORDERED: VENTOLIN HFA18 GM IH (20:37)
[2017-11-20 20:43] VITALS: BP 138/74
== END 2017-11-20 20:43 | disposition home or self-care (01) ==
LOC: RME 16:17 → EME 16:17 → RME 20:43
PROVIDERS: Physician Assistant
DX: J20.9 Acute bronchitis, unspecified (principal); I45.10 Unspecified right bundle-branch block; R94.31 Abnormal electrocardiogram [ECG] [EKG]; I10 Essential (primary) hypertension; J45.909 Unspecified asthma, uncomplicated; F17.200 Nicotine dependence, unspecified, uncomplicated; Z86.79 Personal history of other diseases of the circulatory system; Z87.19 Personal history of other diseases of the digestive system; Z88.0 Allergy status to penicillin
CPT/HCPCS: 71046; 80053; 83880; 84484; 85027; 93005; 94640; 99281; 99284; J2930

== ENCOUNTER 2017-11-29 17:37 | Emergency (ER) | payer OTHER ==
[~2017-11-29 17:37] MED LIST changes: +PREDNISONE10 M1 PO
[2017-11-29 19:50] VITALS: BP 000/00
== END 2017-11-29 20:36 | disposition home or self-care (01) ==
LOC: EME 17:37
DX: R19.7 Diarrhea, unspecified (principal); J45.909 Unspecified asthma, uncomplicated; I11.0 Hypertensive heart disease with heart failure; I50.9 Heart failure, unspecified; Z88.0 Allergy status to penicillin
CPT/HCPCS: 99281; 99284

== ENCOUNTER 2017-12-04 14:29 | Emergency (ER) | payer OTHER ==
[~2017-12-04] VITALS: Ht 175.3 cm; Wt 89.1 kg
[2017-12-04 18:00] VITALS: BP 202/90
[2017-12-05] MEDS ORDERED: METOPROLOL TART25 MG PO (15:05)
[2017-12-05] MEDS ORDERED: VENTOLIN HFA18 GM IH (15:05)
== END 2017-12-04 18:15 | disposition home or self-care (01) ==
LOC: EME 14:29
DX: S80.02XA Contusion of left knee, initial encounter (principal); W10.1XXA Fall (on)(from) sidewalk curb, initial encounter; G89.29 Other chronic pain; I10 Essential (primary) hypertension; I50.9 Heart failure, unspecified; J45.909 Unspecified asthma, uncomplicated; F17.200 Nicotine dependence, unspecified, uncomplicated; Z87.19 Personal history of other diseases of the digestive system; Z88.0 Allergy status to penicillin
CPT/HCPCS: 73560

== ENCOUNTER 2017-12-05 12:49 | Inpatient (IN) | payer OTHER ==
[~2017-12-05] VITALS: Ht 175.3 cm; Wt 83.4 kg
[2017-12-05 14:08] LABS: HEMATOCRIT 45.1 % (38.0-50.0); HEMOGLOBIN 14.9 G/DL (12.5-16.6); MCH 27.2 PG (29.0-34.0); MCV 82.3 FL (86-99); RBC DIS.WIDTH-CV 15.7 % (11.8-14.6); RBC DIS.WIDTH-SD 46.9 % (39-53); RED BLOOD COUNT 5.48 M/uL (4.00-5.50); WHITE BLOOD COUNT 17.5 K/uL (4.1-10.2)
[2017-12-05 14:16] LABS: ALBUMIN 3.9 g/dL (3.2-4.8); CHLORIDE 105 mEq/L (99-109)
[2017-12-05 14:17] LABS: POTASSIUM 3.7 mEq/L (3.7-5.4); SODIUM 139 mEq/L (136-147)
[2017-12-05 14:19] LABS: GLUCOSE 123 mg/dL (70-99)
[2017-12-05 14:21] LABS: TOTAL BILIRUBIN 1.1 mg/dL (0.0-1.0)
[2017-12-05 14:22] LABS: ALKALINE PHOSPHATASE 135 IU/L (3-129); GFR ESTIMATE (CALCULATED) > 59 mL/min/ (58.99-99999)
[2017-12-05 14:24] LABS: AST (GOT) 15 IU/L (2-34); UREA NITROGEN (BUN) 10 mg/dL (9-23)
[2017-12-05 14:25] LABS: ALT (GPT) 10 IU/L (3-49)
[2017-12-05 14:32] LABS: TROP-I INTERPRETATION NEGATIVE; TROPONIN-I < 0.01 ng/mL (0.0-0.30)
[2017-12-05 14:46] LABS: PLAT.SUFFICIENCY ADEQUATE; PLATELET COUNT 235 K/uL (156-360)
[2017-12-05] MEDS ORDERED: VENTOLIN HFA18 GM IH (15:05)
[2017-12-05] MEDS ORDERED: METOPROLOL TART25 MG PO (15:05)
[2017-12-05 16:28] LABS: SERUM ETHYL ALCOHOL < 10 mg/dL
[2017-12-05 18:12] LABS: APPEARANCE CLEAR ((CLEAR)); BILIRUBIN NEGATIVE; BLOOD NEGATIVE; COLOR YELLOW ((YELLOW)); GLUCOSE (STRIP) NEGATIVE; KETONES NEGATIVE; LEUKOCYTES NEGATIVE; NITRITE NEGATIVE; PROTEIN (STRIP) 100; UROBILINOGEN 0.2 MG/DL (0.2-1.0)
[2017-12-05 18:23] LABS: BACTERIA RARE /HPF; EPITHELIAL CELLS RARE /HPF; HYALINE CASTS 0-5 /LPF; MUCUS 1+ /LPF; RED BLOOD CELLS 0-5 /HPF (0-5); WHITE BLOOD CELLS 0-5 /HPF (0-5)
[2017-12-05 19:03] LABS: AMPHETAMINE NEGATIVE (500 ng/mL); BARBITURATES NEGATIVE (200 ng/mL); BENZODIAZEPINES NEGATIVE (150 ng/mL); BUPRENORPHINE NEGATIVE (10 ng/mL); COCAINE NEGATIVE (150 ng/mL); METHADONE NEGATIVE (200 ng/mL); METHAMPHETAMINE NEGATIVE (500 ng/mL); OPIATES (MORPHINE) NEGATIVE (100 ng/mL); OXYCODONE NEGATIVE (100 ng/mL); PHENCYCLIDINE NEGATIVE (25 ng/mL); PROPOXYPHENE NEGATIVE (300 ng/mL); THC CANNABINOIDS NEGATIVE (50 ng/mL); TRICYCLIC ANTIDEPRESSANTS NEGATIVE (300 ng/mL)
[2017-12-05 22:43] LABS: HEMATOCRIT 47.1 % (38.0-50.0); HEMOGLOBIN 15.3 G/DL (12.5-16.6); MCH 27.1 PG (29.0-34.0); MCHC 32.5 G/DL (30.0-36.0); MCV 83.5 FL (86-99); RBC DIS.WIDTH-SD 48.7 % (39-53); RED BLOOD COUNT 5.64 M/uL (4.00-5.50); WHITE BLOOD COUNT 16.8 K/uL (4.1-10.2)
[2017-12-05 22:47] LABS: INTER. NORMALIZED RATIO 1.2
[2017-12-05 22:50] LABS: PTT 21.9 SEC (25-37)
[2017-12-06] VITALS (9 sets, daily range): BP systolic 114–188; BP diastolic 58–95
[2017-12-06] LABS: PLATELET CLUMPS PRESENT - PLATELET COUNT APPEARS ADEQUATE; PLATELET COUNT UNABLE TO REPORT K/uL (156-360)
[2017-12-06 06:24] LABS: CHLORIDE 106 MEQ/L (99-109); CREATININE 0.7 MG/DL (0.6-1.3); GFR ESTIMATE (CALCULATED) > 59 mL/min/ (58.99-99999); GLUCOSE 110 mg/dL (70-99); POTASSIUM 4.1 MEQ/L (3.7-5.4); SODIUM 140 MEQ/L (136-147); UREA NITROGEN (BUN) 11 mg/dL (9-23)
[2017-12-07] VITALS (7 sets, daily range): BP systolic 116–187; BP diastolic 62–95
[2017-12-07 06:58] LABS: CHLORIDE 105 MEQ/L (99-109); CREATININE 1.1 MG/DL (0.6-1.3); GFR ESTIMATE (CALCULATED) > 59 mL/min/ (58.99-99999); GLUCOSE 120 mg/dL (70-99); POTASSIUM 4.2 MEQ/L (3.7-5.4); SODIUM 140 MEQ/L (136-147); UREA NITROGEN (BUN) 10 mg/dL (9-23)
[2017-12-07 07:03] LABS: HEMATOCRIT 37.8 % (38.0-50.0); MCH 27.2 PG (29.0-34.0); MCHC 32.3 G/DL (30.0-36.0); MCV 84.4 FL (86-99); PLAT.SUFFICIENCY ADEQUATE; RBC DIS.WIDTH-CV 16.1 % (11.8-14.6); RBC DIS.WIDTH-SD 49.6 % (39-53); WHITE BLOOD COUNT 14.2 K/uL (4.1-10.2)
[2017-12-07 07:18] LABS: HEMOGLOBIN 12.2 G/DL (12.5-16.6); PLATELET COUNT 197 K/uL (156-360); RED BLOOD COUNT 4.48 M/uL (4.00-5.50)
[2017-12-07 09:32] LABS: ALKALINE PHOSPHATASE 87 IU/L (3-129); ALT (GPT) 10 IU/L (3-49); AST (GOT) 13 IU/L (2-34); DIRECT BILIRUBIN 0.2 mg/dL (0.0-0.3); TOTAL BILIRUBIN 0.6 MG/DL (0.0-1.0); TOTAL PROTEIN 5.4 G/DL (6.4-8.3)
[2017-12-08 00:27] VITALS: BP 155/76
[2017-12-08 04:49] VITALS: BP 149/73
[2017-12-08 06:11] LABS: BASOPHIL (%) 0.1 % (0-1); EOSINOPHIL (%) 0.2 % (0-5); HEMATOCRIT 33.6 % (38.0-50.0); HEMOGLOBIN 10.7 G/DL (12.5-16.6); IMMATURE GRANULOCYTE (%) 0.5 % (0.0-0.7); LYMPHOCYTE (%) 9.3 % (15-42); LYMPHOCYTE COUNT 1.7 K/uL (1.0-2.8); MCH 26.5 PG (29.0-34.0); MCHC 31.8 G/DL (30.0-36.0); MCV 83.2 FL (86-99); MONOCYTE (%) 9.6 % (3-12); MONOCYTE COUNT 1.8 K/uL (0-0.8); NEUTROPHIL (%) 80.3 % (45-76); NEUTROPHIL COUNT 14.7 K/uL (1.8-6.4); PLATELET COUNT 201 K/uL (156-360); RBC DIS.WIDTH-CV 15.9 % (11.8-14.6); RBC DIS.WIDTH-SD 48.6 % (39-53); RED BLOOD COUNT 4.04 M/uL (4.00-5.50); WHITE BLOOD COUNT 18.3 K/uL (4.1-10.2)
[2017-12-08 06:36] LABS: CHLORIDE 103 MEQ/L (99-109); CREATININE 0.9 MG/DL (0.6-1.3); GFR ESTIMATE (CALCULATED) > 59 mL/min/ (58.99-99999); GLUCOSE 157 mg/dL (70-99); POTASSIUM 3.8 MEQ/L (3.7-5.4); SODIUM 139 MEQ/L (136-147); UREA NITROGEN (BUN) 12 mg/dL (9-23)
[2017-12-08 07:49] VITALS: BP 134/64
[2017-12-08 10:15] LABS: HEMATOCRIT 31.8 % (38.0-50.0); HEMOGLOBIN 10.2 G/DL (12.5-16.6); MCH 26.8 PG (29.0-34.0); MCHC 32.1 G/DL (30.0-36.0); MCV 83.5 FL (86-99); RBC DIS.WIDTH-SD 48.7 % (39-53); RED BLOOD COUNT 3.81 M/uL (4.00-5.50); WHITE BLOOD COUNT 19.6 K/uL (4.1-10.2)
[2017-12-08 10:42] LABS: PLATELET CLUMPS PRESENT - PLATELET COUNT APPEARS ADEQUATE
[2017-12-08 10:45] LABS: PLATELET COUNT UNABLE TO REPORT K/uL (156-360)
[2017-12-08 13:59] LABS: APPEARANCE CLEAR ((CLEAR)); BILIRUBIN NEGATIVE; BLOOD MODERATE; COLOR YELLOW ((YELLOW)); GLUCOSE (STRIP) NEGATIVE; KETONES NEGATIVE; LEUKOCYTES TRACE; NITRITE NEGATIVE; PROTEIN (STRIP) 100
[2017-12-08 14:13] LABS: BACTERIA NONE SEEN /HPF; EPITHELIAL CELLS RARE /HPF; MUCUS TRACE /LPF; RED BLOOD CELLS 30-40 /HPF (0-5); UCUL ADDED? YES
[2017-12-08 16:40] VITALS: BP 130/86
[2017-12-08 20:00] VITALS: BP 159/72
[2017-12-08 23:53] VITALS: BP 142/64
[2017-12-09] VITALS (7 sets, daily range): BP systolic 115–153; BP diastolic 58–71
[2017-12-09 06:53] LABS: CHLORIDE 105 MEQ/L (99-109); POTASSIUM 4.3 MEQ/L (3.7-5.4); SODIUM 139 MEQ/L (136-147)
[2017-12-09 06:54] LABS: HEMOGLOBIN 8.9 G/DL (12.5-16.6); MCH 27.4 PG (29.0-34.0); MCV 83.1 FL (86-99); NRBC (%) 0.2 /100 WBC (0-0); RBC DIS.WIDTH-CV 16.1 % (11.8-14.6); RBC DIS.WIDTH-SD 48.7 % (39-53); RED BLOOD COUNT 3.25 M/uL (4.00-5.50); WHITE BLOOD COUNT 16.6 K/uL (4.1-10.2)
[2017-12-09 07:01] LABS: BASOPHIL (%) 0.1 % (0-1); CREATININE 0.7 MG/DL (0.6-1.3); EOSINOPHIL (%) 0.4 % (0-5); EOSINOPHIL COUNT 0.1 K/uL (0-0.3); GFR ESTIMATE (CALCULATED) > 59 mL/min/ (58.99-99999); IMMATURE GRANULOCYTE (%) 0.7 % (0.0-0.7); LYMPHOCYTE (%) 11.6 % (15-42); MONOCYTE (%) 10.8 % (3-12); MONOCYTE COUNT 1.9 K/uL (0-0.8); NEUTROPHIL (%) 76.4 % (45-76); NEUTROPHIL COUNT 13.1 K/uL (1.8-6.4); UREA NITROGEN (BUN) 20 mg/dL (9-23)
[2017-12-09 07:12] LABS: GLUCOSE 117 mg/dL (70-99); PLATELET COUNT 206 K/uL (156-360)
[2017-12-09 14:03] LABS: IRON 40 MCG/DL (35-150); TRANSFERRIN (TIBC) 189.6 mg/dL (215-380); TRANSFERRIN SATUR. 21 % (20-55)
[2017-12-09 14:17] LABS: THYROTROPIN (TSH) 0.11 MIU/L (0.4-5.5)
[2017-12-09 14:22] LABS: FERRITIN 102 NG/ML (22-322)
[2017-12-09 16:53] LABS: HEMATOCRIT 28.3 % (38.0-50.0); MCH 26.7 PG (29.0-34.0); MCHC 31.8 G/DL (30.0-36.0); PLATELET COUNT 255 K/uL (156-360); RBC DIS.WIDTH-CV 15.9 % (11.8-14.6); RED BLOOD COUNT 3.37 M/uL (4.00-5.50); WHITE BLOOD COUNT 18.2 K/uL (4.1-10.2)
[2017-12-10 04:17] VITALS: BP 134/65
[2017-12-10 06:44] LABS: BASOPHIL (%) 0.2 % (0-1); EOSINOPHIL COUNT 0.2 K/uL (0-0.3); HEMATOCRIT 29.4 % (38.0-50.0); HEMOGLOBIN 9.5 G/DL (12.5-16.6); IMMATURE GRANULOCYTE (%) 0.8 % (0.0-0.7); LYMPHOCYTE COUNT 3.1 K/uL (1.0-2.8); MCH 26.9 PG (29.0-34.0); MCHC 32.3 G/DL (30.0-36.0); MCV 83.3 FL (86-99); MONOCYTE (%) 10.4 % (3-12); MONOCYTE COUNT 1.7 K/uL (0-0.8); NEUTROPHIL (%) 68.6 % (45-76); NEUTROPHIL COUNT 11.1 K/uL (1.8-6.4); PLATELET COUNT 274 K/uL (156-360); RBC DIS.WIDTH-CV 16.1 % (11.8-14.6); RBC DIS.WIDTH-SD 48.8 % (39-53); RED BLOOD COUNT 3.53 M/uL (4.00-5.50); WHITE BLOOD COUNT 16.2 K/uL (4.1-10.2)
[2017-12-10 07:46] LABS: CHLORIDE 104 MEQ/L (99-109); CREATININE 0.7 MG/DL (0.6-1.3); GFR ESTIMATE (CALCULATED) > 59 mL/min/ (58.99-99999); GLUCOSE 88 mg/dL (70-99); POTASSIUM 4.3 MEQ/L (3.7-5.4); SODIUM 139 MEQ/L (136-147); UREA NITROGEN (BUN) 14 mg/dL (9-23)
[2017-12-10 08:12] VITALS: BP 136/68
[2017-12-10 12:14] VITALS: BP 169/80
[2017-12-10 13:27] LABS: STOOL OCCULT BLD 1ST SPECIMEN POSITIVE
[2017-12-10 15:48] VITALS: BP 157/74
[2017-12-10 19:34] VITALS: BP 161/72
[2017-12-10 23:24] VITALS: BP 155/74
[2017-12-11 04:08] VITALS: BP 159/76
[2017-12-11 06:50] LABS: BASOPHIL (%) 0.2 % (0-1); EOSINOPHIL (%) 1.4 % (0-5); EOSINOPHIL COUNT 0.3 K/uL (0-0.3); HEMATOCRIT 30.6 % (38.0-50.0); LYMPHOCYTE (%) 19.2 % (15-42); LYMPHOCYTE COUNT 3.5 K/uL (1.0-2.8); MCH 27.6 PG (29.0-34.0); MCHC 32.7 G/DL (30.0-36.0); MCV 84.5 FL (86-99); MONOCYTE (%) 9.5 % (3-12); MONOCYTE COUNT 1.7 K/uL (0-0.8); NEUTROPHIL (%) 67.7 % (45-76); NEUTROPHIL COUNT 12.2 K/uL (1.8-6.4); NRBC (%) 0.1 /100 WBC (0-0); PLATELET COUNT 344 K/uL (156-360); RBC DIS.WIDTH-CV 16.3 % (11.8-14.6); RBC DIS.WIDTH-SD 50.1 % (39-53); RED BLOOD COUNT 3.62 M/uL (4.00-5.50); WHITE BLOOD COUNT 18.1 K/uL (4.1-10.2)
[2017-12-11 07:17] LABS: CHLORIDE 103 MEQ/L (99-109); CREATININE 0.9 MG/DL (0.6-1.3); GFR ESTIMATE (CALCULATED) > 59 mL/min/ (58.99-99999); GLUCOSE 92 mg/dL (70-99); POTASSIUM 4.6 MEQ/L (3.7-5.4); SODIUM 142 MEQ/L (136-147); UREA NITROGEN (BUN) 13 mg/dL (9-23)
[2017-12-11 08:15] VITALS: BP 177/81
[2017-12-11 12:05] VITALS: BP 195/84
[2017-12-11 15:31] VITALS: BP 139/66
[2017-12-11 20:01] VITALS: BP 142/65
[2017-12-11 23:21] VITALS: BP 141/67
[2017-12-12 03:31] VITALS: BP 141/65
[2017-12-12 06:51] LABS: HEMATOCRIT 28.5 % (38.0-50.0); HEMOGLOBIN 9.1 G/DL (12.5-16.6); MCHC 31.9 G/DL (30.0-36.0); MCV 84.6 FL (86-99); NRBC (%) 0.2 /100 WBC (0-0); PLATELET COUNT 295 K/uL (156-360); RBC DIS.WIDTH-CV 16.4 % (11.8-14.6); RED BLOOD COUNT 3.37 M/uL (4.00-5.50); WHITE BLOOD COUNT 19.2 K/uL (4.1-10.2)
[2017-12-12 07:44] VITALS: BP 147/69
[2017-12-12 11:32] VITALS: BP 143/69
[2017-12-12 15:40] VITALS: BP 160/70
[2017-12-12] MEDS ORDERED: LOPRESSOR25 MG PO (15:44)
[2017-12-12] MEDS ORDERED: DUONEB 2.5-0.5 M3 ML AEROSOL (15:44)
[2017-12-12] MEDS ORDERED: SPIRIVA RESPIMAT4 GM IH (15:44)
[2017-12-12] MEDS ORDERED: NIFEDIPINE ER30 MG PO (15:44)
[2017-12-12] MEDS ORDERED: DULERA 100 MCG/13 GM IH (15:46)
[2017-12-12] MEDS ORDERED: TYLENOL REGULA325 MG PO (15:46)
[2017-12-12] MEDS ORDERED: SENNA PLUS TAB1 EACH PO (15:47)
[2017-12-12] MEDS ORDERED: BISAC-EVAC10 MG PR (15:47)
[2017-12-12] MEDS ORDERED: THERAGRAN1 TABLET PO (15:48)
[2017-12-12] MEDS ORDERED: PANTOPRAZOLE SO40 MG PO (15:48)
[2017-12-12] MEDS ORDERED: ENDOCET 5-3251 EACH PO (15:49)
== END 2017-12-12 18:44 | DRG 481 ==
LOC: EME 12:49 → 3EAST 20:55 → EDOF 20:55 → ENRESERV 20:56 → 3EAST 12-06 00:09
PROVIDERS: Emergency Medicine; Hospitalist; Internal Medicine; Orthopaedic Surgery; Physician Assistant Medical
PROC: 0QS704Z Reposition Left Upper Femur with Internal Fixation Device, Open Approach (ICD-10-PCS; principal; 2017-12-06)
PROC: 0DJ08ZZ Inspection of Upper Intestinal Tract, Via Natural or Artificial Opening Endoscopic (ICD-10-PCS; 2017-12-11)
DX: S72.142A Displaced intertrochanteric fracture of left femur, initial encounter for closed fracture (principal); J44.1 Chronic obstructive pulmonary disease with (acute) exacerbation; J44.0 Chronic obstructive pulmonary disease with (acute) lower respiratory infection; J20.9 Acute bronchitis, unspecified; G31.2 Degeneration of nervous system due to alcohol; N39.0 Urinary tract infection, site not specified; R19.5 Other fecal abnormalities; W10.1XXA Fall (on)(from) sidewalk curb, initial encounter; I48.0 Paroxysmal atrial fibrillation; F10.229 Alcohol dependence with intoxication, unspecified; F10.230 Alcohol dependence with withdrawal, uncomplicated; Y90.0 Blood alcohol level of less than 20 mg/100 ml; I10 Essential (primary) hypertension; D64.9 Anemia, unspecified; I45.10 Unspecified right bundle-branch block; K20.9 Esophagitis, unspecified; K29.70 Gastritis, unspecified, without bleeding; M17.12 Unilateral primary osteoarthritis, left knee; R29.6 Repeated falls; F17.210 Nicotine dependence, cigarettes, uncomplicated; Z96.652 Presence of left artificial knee joint; Z59.0 Homelessness; Z91.14 Patient's other noncompliance with medication regimen
CPT/HCPCS: 70450; 71045; 71046; 73502; 73552; 73560; 73701; 74018; 74177; 76000; 80048; 80053; 80076; 81003; 82140; 82272; 82607; 82728; 82746; 83540; 83735; 83880; 84439; 84443; 84466; 84481; 84484; 85014; 85018; 85025; 85027; 85610; 85730; 86850; 86900; 86901; 87086; 93005; 93970; 94640; 94799; 97530 GO; 97530 GP; 99281; 99284; 99285; C1713; G0480; J0131; J0330; J0690; J0696; J1644; J1650; J1885; J2250; J2270; J3010; J7120; J7512